=== PATIENT | female | born 1940 | race African-American/Black ===

== ENCOUNTER 2017-05-30 09:00 | Outpatient (CLI) | payer MEDICARE, MEDICAID | END 2017-05-30 09:01 | disposition home or self-care (01) | LOC: BICMAMMO 09:00 | PROVIDERS: ATTEND Internal Medicine | DX: Z12.31 Encounter for screening mammogram for malignant neoplasm of breast (principal); Z85.3 Personal history of malignant neoplasm of breast | CPT/HCPCS: 77063; 77067 ==

== ENCOUNTER 2017-08-16 08:32 | Outpatient (CLI) | payer MEDICARE, MEDICAID | END 2017-08-16 08:33 | disposition home or self-care (01) | LOC: BICULT 08:32 | PROVIDERS: ATTEND Family Medicine | DX: R63.4 Abnormal weight loss (principal) | CPT/HCPCS: 76705 ==

== ENCOUNTER 2018-05-31 10:57 | Outpatient (CLI) | payer MEDICARE, MEDICAID | END 2018-05-31 10:58 | disposition home or self-care (01) | LOC: BICMAMMO 10:57 | PROVIDERS: ATTEND Family Medicine | DX: Z12.31 Encounter for screening mammogram for malignant neoplasm of breast (principal); R92.1 Mammographic calcification found on diagnostic imaging of breast; Z85.3 Personal history of malignant neoplasm of breast | CPT/HCPCS: 77063; 77067 ==

== ENCOUNTER 2018-07-03 10:33 | Day surgery (SDC) | payer MEDICARE, MEDICAID ==
[2018-07-02 16:33] VITALS: BMI 18.6
--- NOTE | 2018-07-02 20:53 | HP ---
HISTORY OF PRESENT ILLNESS: The patient is a 78-year-old female referred to me by Dr. Meza for evaluation of dyspepsia, anorexia, and weight loss. The patient is fragile looking elderly black female, who has had poor appetite and weight loss. She also complains of some indigestion, dyspepsia. The patient comes in for abdominal bloating and early satiety. This has been going on for several months.She had no dysphagia, odynophagia. Her weight was 120 pounds in the past, but now her weight is down to 104 pounds. The patient has no hematochezia or melena. She has a more of chronic dyspepsia, early satiety, and weight loss. The patient comes in for EGD and colonoscopy because of the above symptoms. ALLERGIES: NONE. SOCIAL HISTORY: The patient does not smoke or drink alcohol. MEDICAL HISTORY: 1. Peripheral neuropathy. 2. Breast cancer, status post mastectomy. 3. Colon resection. 4. Osteoarthritis. 5. Osteoporosis. 6. Anemia. 7. Hypertension. 8. Left hip replacement. 9. Right hip replacement. 10. Vaginal wall suspension. PHYSICAL EXAMINATION: GENERAL: She is a very fragile looking elderly black female, appears comfortable, in no distress. VITAL SIGNS: Pulse is 70, blood pressure 110/70. HEENT: Conjunctivae clear. CARDIOVASCULAR SYSTEM/LUNGS: Within normal limits. ABDOMEN: Soft. No organomegaly. No tenderness. No masses. EXTREMITIES: Reveal no edema. ADMITTING DIAGNOSES: Chronic dyspepsia, early satiety, and weight loss. PLAN: EGD and colonoscopy. Job ID: [id number] MTDD
[~2018-07-03 10:33] MED LIST: Lidocaine 1% PF 5 ML VIAL ONE; PROPOFOL 200 MG/20 ML VIAL ONE
--- NOTE | 2018-07-03 19:13 | OP ---
DATE OF PROCEDURE: 07/03/2018 OPERATIVE PROCEDURE: Colonoscopy. PREOPERATIVE DIAGNOSES: A 78-year-old female with anorexia, weight loss, anemia, undergoing colonoscopy. POSTOPERATIVE DIAGNOSES: 1. Hemorrhoids. 2. Scattered diverticular disease in the sigmoid colon and also over the right colon area. 3. Fecal residue intermittently in the colon. Overall, I do not see any pathology to explain the weight loss. DESCRIPTION OF PROCEDURE: The patient was placed on the left lateral position and was given sedation by Anesthesia Department. A rectal exam was done before the scope was advanced into the rectum. No lesions felt on rectal exam. A Pentax video colonoscope was introduced into the rectum and advanced all the way to the cecum. The patient had copious amounts of thick fecal residue throughout the colon. Water was irrigated and washed out. I was able to get to the cecum without any difficulty. However, . The ileocecal area, cecum, no pathology seen. The patient does have . The transverse colon, splenic flexure, descending colon, no pathology seen. The sigmoid colon exam showed scattered diverticula. The rectum showed hemorrhoids. Job ID: [id number]
--- NOTE | 2018-07-04 02:18 | OP ---
DATE OF PROCEDURE: 07/03/2018 PROCEDURE PERFORMED: Esophagogastroduodenoscopy. PREOPERATIVE DIAGNOSES: Anorexia, early satiety, weight loss, and abdominal fullness. POSTOPERATIVE DIAGNOSES: 1. Small hiatus hernia. 2. Diverticulum in the 2nd part of the duodenum. There is no pathology seen indicating the patient's weight loss, dyspepsia,and anorexia. DESCRIPTION OF PROCEDURE: The patient was placed on her left lateral position and was given sedation by Anesthesia Department. A Pentax video gastroscope under direct vision passed down the oropharynx, past the GE junction into the stomach and subsequently into the descending duodenum. The esophageal mucosa appeared normal. There were no intense lesions. At the GE junction, no pathology seen. The patient has small hiatus hernia. Retroflexion of scope in stomach failed to show any pathology in fundus or cardia. In the gastric body and gastric antrum, no pathology seen. There was mild gastritis involving the gastric antrum pyloric opening. In the duodenal bulb, descending duodenum, no pathology seen. The patient had a diverticulum in the 2nd part of the duodenum. The stomach decompressed and scope removed. DISCHARGE PLANNING: This is a 78-year-old female, came for an EGD and a colonoscopy. She had been having a progressive weight loss, anorexia, early satiety and . The EGD showed a small hiatus hernia, diverticulosis in the 2nd part of the duodenum. The colonoscopy showed hemorrhoids and diverticular disease. DISCHARGE RECOMMENDATIONS: The patient advised to call me if she develops abdominal pain, hematochezia. We will plan for a CAT scan of the abdomen in the near future. Job ID: [id number]
[2018-07-04] MEDS ORDERED: Ciprofloxacin 0.2% Otic 1 DROP CON ONE (09:32)
== END 2018-07-03 14:05 | disposition home or self-care (01) ==
LOC: SDC 10:33
PROVIDERS: ATTEND Internal Medicine Gastroenterology
PROC: 0DJD8ZZ Inspection of Lower Intestinal Tract, Via Natural or Artificial Opening Endoscopic (ICD-10-PCS; principal; 2018-07-03)
PROC: 0DJ08ZZ Inspection of Upper Intestinal Tract, Via Natural or Artificial Opening Endoscopic (ICD-10-PCS; 2018-07-03)
DX: R63.4 Abnormal weight loss (principal); K64.9 Unspecified hemorrhoids; K57.50 Diverticulosis of both small and large intestine without perforation or abscess without bleeding; D64.9 Anemia, unspecified; K40.90 Unilateral inguinal hernia, without obstruction or gangrene, not specified as recurrent; G62.9 Polyneuropathy, unspecified; M19.90 Unspecified osteoarthritis, unspecified site; I10 Essential (primary) hypertension; M81.0 Age-related osteoporosis without current pathological fracture; R10.13 Epigastric pain; R68.81 Early satiety; Z79.899 Other long term (current) drug therapy
CPT/HCPCS: J2001; J2704

== ENCOUNTER 2018-10-16 16:41 | Emergency (ER) | payer MEDICARE, MEDICAID ==
--- NOTE | 2018-10-16 17:13 | RAD ---
EXAM: Chest 2 views: HISTORY: Weakness and decreased appetite COMPARISON: 12/28/2002 FINDINGS: There is a normal-sized cardiomediastinal silhouette. Atherosclerotic calcifications are seen in the aorta. There is no evidence of consolidation, mass, or pleural effusion. Degenerative changes are seen in the spine. IMPRESSION: No evidence of acute cardiopulmonary disease
--- NOTE | 2018-10-16 18:09 | CT ---
EXAM: CT brain without contrast HISTORY: Generalized weakness. Intermittent frontal headache for one week COMPARISON: 04/29/2016 TECHNIQUE: Multiple contiguous axial images were obtained and a CT of the brain without contrast. FINDINGS: There are scattered hypodensities in the subcortical and periventricular white matter consi stent with small vessel ischemic disease. There is no evidence of hydrocephalus, intracranial hemorrhage, or extra-axial fluid collection. The calvarium and overlying soft tissues are unremarkable. The visualized paranasal sinuses and masto id air cells are well aerated. IMPRESSION: No evidence of acute intracranial abnormality
[2018-10-16 18:41] LABS: #Eosinphils 0.2 thou/uL (0.0-0.7); #Lymphocytes 2.4 thou/uL (1.20-3.40); #Monocytes 0.6 thou/uL (0.11-0.59); #Neutrophils 3.4 thou/uL (1.40-6.50); %Basophils 0.6 % (0.0-1.0); %Eosinophils 2.3 % (0.0-10.0); %Lymphocytes 36.6 % (21.0-51.0); %Monocytes 9.3 % (0.0-10.0); %Neutrophils 51.2 % (42.0-75.0); Hemoglobin 11.7 g/dL (12.0-16.0); Mean Corpuscular HGB CONC 32.7 g/dL (32.0-36.0); Mean Corpuscular Volume 91.7 fL (78.0-98.0); Platelet Count 277 thou/uL (130-400); RBC Distribution Width 11.8 % (11.5-14.5); Red Blood Cell (RBC) Count 3.91 mill/uL (4.20-5.40); White Blood Cell (WBC) Count 6.6 thou/uL (4.8-10.8)
[2018-10-16 19:03] LABS: ALT (SGPT) 14 U/L (8-55); AST (SGOT) 16 U/L (5-34); Albumin 4.1 g/dL (3.4-4.8); Alkaline Phosphatase 81 U/L (40-150); Anion Gap 13 mmol/L (10-20); BUN (Urea Nitrogen) 22 mg/dL (9.8-20.1); Bilirubin, Total 0.3 mg/dL (0.2-1.2); Calc. Creatinine Clearance 0 mL/min (70-130); Calcium 9.7 mg/dL (7.8-10.44); Carbon Dioxide 25 mmol/L (23-31); Chloride 105 mmol/L (98-107); Estimated GFR-MDRD 80; Globulin 3.8 g/dL (2.4-3.5); Glucose 85 mg/dL (83-110); Potassium 4.2 mmol/L (3.5-5.1); Protein, Total 7.9 g/dL (6.0-8.3); Sodium 139 mmol/L (136-145)
[2018-10-16 20:18] LABS: Bilirubin Negative (Negative); Blood, Urine 2+ (Negative); Clarity Extra Turbid (Clear); Glucose, Urine (Dipstick) Normal (Negative); Leukocyte 250 Leu/uL (Negative); Nitrite Negative (Negative); Protein, Urine (Dipstick) 10 mg/dL (Neg-Trace); RBC/HPF 21-50 HPF (0-3); Squamous Epithelial 0-3 HPF (0-3); Urobilinogen Normal mg/dL (Less than 2)
[2018-10-16 20:19] LABS: Bacteria/HPF None Seen HPF (None Seen); WBC/HPF None Seen HPF (0-3)
[2018-10-16] MEDS ORDERED: Acetaminophen 500 MG TAB ONE (20:19)
== END 2018-10-16 20:44 | disposition home or self-care (01) ==
LOC: ERS 16:41
DX: R53.1 Weakness (principal); R51 Headache; N39.0 Urinary tract infection, site not specified; F17.220 Nicotine dependence, chewing tobacco, uncomplicated
CPT/HCPCS: 36415; 70450; 71046; 80053; 81003; 81015; 85025; 93005; A4353

== ENCOUNTER 2018-12-27 11:00 | Emergency (ER) | payer MEDICARE, MEDICAID ==
[2018-12-27 12:03] LABS: #Eosinphils 0.1 thou/uL (0.0-0.7); #Lymphocytes 2.5 thou/uL (1.20-3.40); #Monocytes 1.1 thou/uL (0.11-0.59); #Neutrophils 7.4 thou/uL (1.40-6.50); %Basophils 0.4 % (0.0-1.0); %Eosinophils 0.9 % (0.0-10.0); %Lymphocytes 22.6 % (21.0-51.0); %Monocytes 9.7 % (0.0-10.0); %Neutrophils 66.4 % (42.0-75.0); Hemoglobin 10.6 g/dL (12.0-16.0); Mean Corpuscular HGB CONC 32.7 g/dL (32.0-36.0); Mean Corpuscular Hemoglobin 29.4 pg (27.0-31.0); Platelet Count 331 thou/uL (130-400); RBC Distribution Width 11.9 % (11.5-14.5); Red Blood Cell (RBC) Count 3.61 mill/uL (4.20-5.40); White Blood Cell (WBC) Count 11.1 thou/uL (4.8-10.8)
[2018-12-27 12:26] LABS: ALT (SGPT) 15 U/L (8-55); AST (SGOT) 22 U/L (5-34); Albumin 3.8 g/dL (3.4-4.8); Alkaline Phosphatase 70 U/L (40-150); Anion Gap 13 mmol/L (10-20); BUN (Urea Nitrogen) 48 mg/dL (9.8-20.1); Bilirubin, Total 0.5 mg/dL (0.2-1.2); Calc. Creatinine Clearance 0 mL/min (70-130); Calcium 9.9 mg/dL (7.8-10.44); Carbon Dioxide 30 mmol/L (23-31); Chloride 102 mmol/L (98-107); Estimated GFR-MDRD 58; Globulin 3.2 g/dL (2.4-3.5); Glucose 116 mg/dL (83-110); Lipase 7 U/L (8-78); Potassium 3.6 mmol/L (3.5-5.1); Sodium 141 mmol/L (136-145)
--- NOTE | 2018-12-27 13:33 | RAD ---
2 VIEWS ABDOMEN AND 1 VIEW CHEST: Date: 12/27/18 HISTORY: Abdominal pain. Chest pain. Constipation. Loss of appetite. COMPARISON: Chest radiograph dated 10/16/18. FINDINGS: CHEST 1 VIEW: Atherosclerosis of aortic knob. Normal cardiac silhouette. Pulmonary vessels and hilum are normal. Ri ght costophrenic angle is clear. Minimal blunting left costophrenic angles. Lung volumes are diminish ed, likely due to poor inspiratory effort. Probable bibasilar atelectasis. A left lower lobe infiltra te cannot be entirely excluded. There is no pneumothorax or osseous abnormalities. ABDOMEN 2 VIEWS: Multiple mildly prominent air-filled loops of small bowel with differential air fluid levels. There d oes appear to be some air and fecal material in the colon. Correlate for a developing ileus versus an early/partial obstructive process. No pneumoperitoneum on the upright projection. No suspicious dens ities in the abdomen or pelvis. There are degenerative changes in the lower lumbar spine. There appears to be subluxation of the right hip prosthesis from its normal expected location. There appears to be chronic change involving the right acetabulum. Left hip prosthesis is unremarkable. IMPRESSION: 1. Developing ileus versus early/partial small bowel obstruction. Continued surveillance is recommen ded. 2. Possible left lower lobe infiltrate. POS: TPC
--- NOTE | 2018-12-29 13:38 | EKG ---
Test Reason : Blood Pressure : / mmHG Vent. Rate : 090 BPM Atrial Rate : 090 BPM P-R Int : 146 ms QRS Dur : 118 ms QT Int : 390 ms P-R-T Axes : 039 000 022 degrees QTc Int : 477 ms Normal sinus rhythm Incomplete right bundle branch block Septal infarct , age undetermined Abnormal ECG Confirmed by BREN TAYLOR D.O. ([id number]), editor index SHANNAN SADLER ([id number]) on 12/29/2018 1:38:37 PM Referred By: Confirmed By:BREN TAYLOR D.O.
== END 2018-12-27 13:31 | disposition home or self-care (01) ==
LOC: ERS 11:00
DX: K59.00 Constipation, unspecified (principal); F17.220 Nicotine dependence, chewing tobacco, uncomplicated; Z79.899 Other long term (current) drug therapy
CPT/HCPCS: 36415; 74022; 80053; 83690; 84484; 85025; 93005; 94760

== ENCOUNTER 2019-01-16 10:21 | Outpatient (CLI) | payer MEDICARE, MEDICAID ==
[2019-01-16 14:40] LABS: #Eosinphils 0.1 thou/uL (0.0-0.7); #Lymphocytes 1.8 thou/uL (1.20-3.40); #Monocytes 0.6 thou/uL (0.11-0.59); #Neutrophils 3.5 thou/uL (1.40-6.50); %Eosinophils 1.4 % (0.0-10.0); %Lymphocytes 30.1 % (21.0-51.0); %Monocytes 9.3 % (0.0-10.0); %Neutrophils 59.2 % (42.0-75.0); Hemoglobin 10.6 g/dL (12.0-16.0); Mean Corpuscular HGB CONC 32.8 g/dL (32.0-36.0); Mean Corpuscular Hemoglobin 29.6 pg (27.0-31.0); Mean Corpuscular Volume 90.2 fL (78.0-98.0); Mean Platelet Volume 7.4 fL (7.4-10.4); Platelet Count 393 thou/uL (130-400); RBC Distribution Width 12.3 % (11.5-14.5); Red Blood Cell (RBC) Count 3.59 mill/uL (4.20-5.40); White Blood Cell (WBC) Count 5.9 thou/uL (4.8-10.8)
[2019-01-16 14:46] LABS: RBC/HPF 21-50 HPF (0-3); WBC/HPF Greater than 50 HPF (0-3)
[2019-01-16 14:47] LABS: INR-International Normal Ratio 1.1; Prothrombin Time 13.9 SEC (12.0-14.7)
[2019-01-16 14:57] LABS: Bacteria/HPF 2+ HPF (None Seen); Calcium Oxalate Crystals 1+ HPF (None Seen)
[2019-01-16 15:01] LABS: Anion Gap 11 mmol/L (10-20); BUN (Urea Nitrogen) 14 mg/dL (9.8-20.1); Calc. Creatinine Clearance 0 mL/min (70-130); Calcium 9.2 mg/dL (7.8-10.44); Carbon Dioxide 26 mmol/L (23-31); Chloride 105 mmol/L (98-107); Estimated GFR-MDRD 85; Glucose 96 mg/dL (83-110); Sodium 138 mmol/L (136-145)
== END 2019-01-16 10:22 | disposition home or self-care (01) ==
LOC: LABBT 10:21
PROVIDERS: ATTEND Orthopaedic Surgery
DX: Z01.812 Encounter for preprocedural laboratory examination (principal); T84.010A Broken internal right hip prosthesis, initial encounter
CPT/HCPCS: 80048; 81015; 85025; 85610; 87081

== ENCOUNTER 2019-01-16 13:15 | Inpatient (IN) | payer MEDICARE, MEDICAID ==
[2019-01-16 13:24] VITALS: BMI 20.1
[2019-01-24] MEDS ORDERED: Sodium Chloride 0.9% 100 ML ONE (07:31)
[2019-01-24] MEDS ORDERED: Tranexamic Acid 1,000 MG/10 ML VIAL ONE ×2 (07:31→12:53)
[2019-01-24] MEDS ORDERED: Fentanyl 100 MCG/2 ML VIAL ONE ×3 (08:03→12:28)
[2019-01-24] MEDS ORDERED: Midazolam HCl 2 mg/2 ml Vial ONE (08:04)
[2019-01-24] MEDS ORDERED: diphenhydrAMINE 50 MG/ML VIAL IM PRN (09:00)
[2019-01-24] MEDS ORDERED: Bupivacaine 0.25% 10 ML VIAL EPIDURAL PRN (09:00)
[2019-01-24] MEDS ORDERED: fentaNYL Citrate/PF 500 MCG, Bupivacaine 10 ML in Sodium Chloride 0.9% 80 ML EPIDURAL SCH (09:00)
[2019-01-24] MEDS ORDERED: diphenhydrAMINE 50 MG/ML VIAL IVP PRN (09:00)
[2019-01-24] MEDS ORDERED: HYDROcodone/Acetaminophen 5/325 mg Tablet PO PRN ×2 (09:00)
[2019-01-24] MEDS ORDERED: Zolpidem Tartrate 5 MG TAB PO PRN ×2 (09:00→09:13)
[2019-01-24] MEDS ORDERED: Ondansetron PF 4 MG/2 ML Vial IVP PRN ×2 (09:00→09:13)
[2019-01-24] MEDS ORDERED: Promethazine HCl 25 MG SUPP PR PRN (09:00)
[2019-01-24] MEDS ORDERED: Naloxone HCl 0.4 mg/ml Vial IVP PRN (09:00)
[2019-01-24] MEDS ORDERED: Naloxone HCl 0.4 mg/ml Vial IV PRN (09:00)
[2019-01-24] MEDS ORDERED: diphenhydrAMINE 25 MG CAP PO PRN ×2 (09:00→09:13)
[2019-01-24] MEDS ORDERED: Hydrocerin (Eucerin) Cream 120 gm Jar TOP PRN (09:00)
[2019-01-24] MEDS ORDERED: Promethazine HCl 25 MG/ML VIAL IM PRN ×3 (09:00→10:31)
[2019-01-24] MEDS ORDERED: Acetaminophen 325 MG TAB PO PRN (09:13)
[2019-01-24] MEDS ORDERED: Fentanyl 100 MCG/2 ML VIAL SLOW IVP PRN ×2 (09:13)
[2019-01-24] MEDS ORDERED: HYDROcodone/Acetaminophen 10/325 mg Tablet PO PRN ×2 (09:13)
[2019-01-24] MEDS ORDERED: Ropivacaine 0.2% HCl/PF 20 ML ONE (09:53)
[2019-01-24] MEDS ORDERED: Ondansetron HCl/PF 4 MG/2 ML Vial IVP PRN ×2 (10:31→13:21)
[2019-01-24] MEDS ORDERED: Promethazine HCl 25 MG/ML VIAL SLOW IVP PRN (10:31)
[2019-01-24] MEDS ORDERED: Ondansetron PF 4 MG/2 ML Vial ONE (12:12)
[2019-01-24] MEDS ORDERED: Lidocaine 1% PF 5 ML VIAL ONE (12:12)
[2019-01-24] MEDS ORDERED: Rocuronium Bromide 10 MG/ML (10ML VIAL) ONE (12:12)
[2019-01-24] MEDS ORDERED: Glycopyrrolate 0.2 MG/ML 5 ML SYRINGE ONE (12:12)
[2019-01-24] MEDS ORDERED: PHENYLEPHRINE-NS 100 MCG/ML 10 ML SYRINGE ONE (12:12)
[2019-01-24] MEDS ORDERED: PROPOFOL 200 MG/20 ML VIAL ONE (12:12)
[2019-01-24] MEDS ORDERED: ePHEDrine 50 MG/ML VIAL ONE (12:12)
[2019-01-24] MEDS ORDERED: Promethazine HCl 25 MG/ML VIAL IM/IV PRN (13:21)
[2019-01-24] MEDS ORDERED: Non-Formulary Medication 1 EACH PO PRN (13:21)
[2019-01-24] MEDS: Ketorolac Tromethamine 30 MG/ML VIAL IVP SCH ×3 (13:50→23:29)
--- NOTE | 2019-01-24 13:58 | OP ---
DATE OF PROCEDURE: 01/24/2019 PREOPERATIVE DIAGNOSIS: Failed right total hip arthroplasty. POSTOPERATIVE DIAGNOSIS: Failed right total hip arthroplasty. OPERATIVE PROCEDURE: Revision right total hip arthroplasty one component (acetabulum revision). ACCOUNT SUPPORT ANALYST: Dru Penn PA-C ANESTHESIA: General via endotracheal tube augmented with epidural. COMPONENTS USED: [facility] revision acetabular Trident hemispherical 58 mm cup with a restorationism 6.5 mm screw x2 of 20 mm each, MDM cementless 46 mm liner, SWING DRIVER femoral head, and a restorationism of 28 x 52 mm ADM/MDM restorationism modular head. ESTIMATED BLOOD LOSS: 250. 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 SPECIMENS: Intraoperative tissue sent for frozen, negative for organisms. INPUT: 1500 mL crystalloid. OUTPUT: 200 mL of clear yellow urine. DRAINS: None. COMPLICATIONS: None. COUNTS: Correct. INDICATION FOR SURGERY: Una is a 78-year-old female, who has had progressive right hip, groin, and thigh pain and problems with standing and walking and radiographs demonstrated changes in the position of her acetabular cup. The patient has elected to proceed with revision arthroplasty as definitive treatment of all the problems. DESCRIPTION OF PROCEDURE: After informed consent was obtained in the preoperative holding area, the patient was taken to the operative suite, where she received preoperative antibiotics and general anesthesia was induced and an endotracheal tube was placed and secured. Once adequate anesthesia was obtained, the patient was placed in the left lateral decubitus position and was secured to the operating table. The right lower extremity was then prepped and draped in usual sterile fashion. Prior to incision, a time-out was called. All members of surgical team agreed upon site, surgeon, and patient. We chose an anterolateral approach using the patient's old scar. After initial incision was made, Bovie electrocautery was used to undermine deeper tissues. IT band was encountered. This was then incised sharply. The abductors were identified and reflected. 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 The proximal femur after skeletonization was identified and significant proximal bone loss was noted, but the patient had excellent distal fixation of her fully porous-coated SWING DRIVER stem. Copious synovectomy was performed, almost the metallosis was removed and we then used SWING DRIVER punch to remove the femoral head and then, the acetabular shell was loose. We were able to remove the liner and both screws without any use of the osteotomes. We were able to essentially take the acetabular shell out with fingers. We then used curettage to remove the rind in the metallosis, which had been formed inside the acetabular defect. After copious cleaning and curettage, we reamed up to 56 mm cup and then placed a cadaveric bone into the defect as bone graft. Two screws were placed with good purchase superiorly into the ilium. Cup had excellent fixation was stable. We then placed our polyethylene liner and turned attention to the femoral head. We then placed our bipolar MDM head, and reduction maneuver was performed. The patient was stable to flexion, extension, internal and external rotation, and shuck. She did not have any abductor bounce. The entire wound was copiously irrigated with normal saline and primary closure was accomplished with a #5 Ethibond and #2 Vicryl for the abductor. The IT band was closed with a running Quill #2 stitch. The subcutaneous layer was closed with a running 0 Quill stitch. Subcuticular layer was closed with a 3-0 Monocryl Quill stitch and skin cement was placed over the incision. Sterile dressing was applied. Procedure was terminated without any complication. At the time of this dictation, the patient is still awaiting extubation and disposition post extubation will be to recovery room. Job ID: [id number]
--- NOTE | 2019-01-24 14:03 | RAD ---
RIGHT HIP 2 VIEWS: HISTORY: Postop total hip arthroplasty. FINDINGS/IMPRESSION: There are recent postop changes of total knee arthroplasty in good position and alignment. Soft tiss ue air is present. There are vascular calcifications. POS: OFF
[2019-01-24] MEDS: Sodium Chloride 0.9% 1,000 ML IV SCH ×2 (14:39→19:05)
[2019-01-24] MEDS: Gabapentin 300 MG CAP PO SCH ×2 (14:39→19:50)
[2019-01-24] MEDS: CEFAZOLIN 2 GM in Premix Bag 1 BAG IVPB SCH ×2 (16:51→23:29)
[2019-01-24] MEDS ORDERED: FLU VACC TS2019-20(65YR UP)/PF 180 MCG/0.5 ML SYRINGE IM ONE (19:00)
[2019-01-24] MEDS: Aspirin 81 mg Enteric Coated Tablet PO SCH (19:49)
[2019-01-24] MEDS ORDERED: Ferrous Gluconate 324 MG TAB PO SCH (21:00)
[2019-01-25 04:46] LABS: Hemoglobin 8.7 g/dL (12.0-16.0); Mean Corpuscular Hemoglobin 30.4 pg (27.0-31.0); Mean Platelet Volume 7.2 fL (7.4-10.4); Platelet Count 285 thou/uL (130-400); RBC Distribution Width 11.9 % (11.5-14.5); Red Blood Cell (RBC) Count 2.86 mill/uL (4.20-5.40); White Blood Cell (WBC) Count 7.8 thou/uL (4.8-10.8)
[2019-01-25] MEDS: Ketorolac Tromethamine 30 MG/ML VIAL IVP SCH ×3 (06:51→17:55)
[2019-01-25] MEDS ORDERED: Aspirin 81 mg Enteric Coated Tablet PO SCH (09:00)
[2019-01-25] MEDS ORDERED: Non-Formulary Item 1 EACH (Multivit-Min/Iron/Folic/Lutein [Centrum Silver Women] 1 TAB) PO SCH (09:00)
[2019-01-25] MEDS: Sodium Chloride 0.9% 1,000 ML IV SCH ×2 (09:22→16:36)
[2019-01-25] MEDS: Ferrous Gluconate 324 MG TAB PO SCH ×2 (09:22→17:54)
[2019-01-25] MEDS: Senokot S 8.6-50 MG TAB PO SCH ×2 (09:22→20:15)
[2019-01-25] MEDS: Gabapentin 300 MG CAP PO SCH ×3 (09:22→20:15)
[2019-01-25] MEDS: Multivitamin W/ Minerals 1 TAB PO SCH (09:22)
[2019-01-25] MEDS: Aspirin 81 mg Enteric Coated Tablet PO SCH ×2 (09:23→20:15)
[2019-01-25] MEDS: Artificial Tear Sol 15 ML BOT EA EYE SCH (10:35)
[2019-01-25] MEDS ORDERED: Sodium Chloride 0.9% 500 ML IVPB SCH (11:15)
--- NOTE | 2019-01-25 13:27 | PRG ---
DATE OF SERVICE: 01/25/2019 SUBJECTIVE: Una is a 78-year-old female, postoperative day 1 from right revision hip arthroplasty of the acetabulum. She is sitting up, doing very well this morning. She has no complaints of pain and is quite happy with her postoperative results. Her knee pain which brought her to surgery has improved. OBJECTIVE: VITAL SIGNS: Temperature 98.6, pulse 80, respiratory rate 16 and nonlabored, blood pressure 88/48. GENERAL: She is alert and oriented to person, place, time, and situation, grossly nonfocal, responsive, and appropriate with examiner. EXTREMITIES: Incision is clean. Leg lengths are equal. There is no shortening or malrotation. No erythema. No strikethrough is noted. LABORATORY DATA: Hemoglobin and hematocrit 8.7 and 26.4. IMPRESSION: 1. This is a 78-year-old female, postoperative day 1 from a partial right hip revision arthroplasty. 2. Anemia. PLAN: Continue current care. Recheck tomorrow. Job ID: [id number]
[2019-01-25] MEDS: HYDROcodone/Acetaminophen 10/325 mg Tablet PO PRN ×2 (16:02→20:16)
[2019-01-25] MEDS ORDERED: Prevnar 13-Val Conj/PF 0.5 ML SYRINGE IM ONE (16:15)
--- NOTE | 2019-01-25 16:39 | CON ---
DATE OF CONSULTATION: 01/25/2019 PRIMARY CARE PROVIDER: Dr. Caitlyn Meza. CHIEF COMPLAINT: Management of medical comorbidities. HISTORY OF PRESENT ILLNESS: Ms. Wright is a pleasant 78-year-old lady, who was seen at [facility] on January 25, 2019. On January 24, she underwent revision right total hip arthroplasty. Hospitalist Service was consulted for management of medical comorbidities. Ms. Wright denies any chest pain. She denies any lightheadedness. She denies any nausea or vomiting. She denies any abdominal pain, fevers, or chills. She reports that pain at the surgical site is managed with medications and is under control. REVIEW OF SYSTEMS: All systems were reviewed and found to be negative except for the pertinent positives mentioned above. PAST MEDICAL HISTORY: Left-sided breast cancer status post chemotherapy and mastectomy, benign pericardial mass, hematuria. SURGICAL HISTORY: Colon resection, left mastectomy, hysterectomy, total right hip arthroplasty in 98 and total left hip arthroplasty in , and bone grafting in 1999. FAMILY HISTORY: Hypertension and diabetes in multiple family members. SOCIAL HISTORY: The patient denies tobacco use, alcohol use, or recreational drug use. ALLERGIES: NO KNOWN DRUG ALLERGIES. CURRENT MEDICATIONS: 1. Alendronate 70 mg every week. 2. Aspirin 81 mg daily. 3. Refresh Tears daily. 4. Ferrous gluconate 324 mg 2 times a day. 5. Neurontin 300 mg 3 times a day. 6. Centrum Silver 1 tablet daily. 7. Tramadol p.r.n. PHYSICAL EXAMINATION: GENERAL: On examination, Ms. Wright is awake and alert, not in acute distress. VITAL SIGNS: Blood pressure is 106/40, pulse 82, respiratory rate 14, and oxygen saturation 99% on room air. She is afebrile. EYES: No scleral icterus, no conjunctival pallor. ENT: Moist mucosal membranes. No oropharyngeal erythema or exudates. NECK: Supple, nontender, trachea is midline. RESPIRATORY: Accessory muscles of breathing are not active. Chest wall movements are symmetric bilaterally. Lungs are clear to auscultation without wheeze, rhonchi, or crepitations. CARDIOVASCULAR: S1 and S2 are heard, regular. Peripheral pulses palpable. No carotid bruit. No pericardial rub. ABDOMEN: Soft, nontender, bowel sounds are heard. NEUROLOGIC: Cranial nerves 2 through 12 are intact. MUSCULOSKELETAL: Arthritic changes, status post right hip surgery. SKIN: No rashes or subcutaneous nodules. LYMPHATIC: No cervical lymphadenopathy. PSYCHIATRIC: Normal mood, normal affect, patient is oriented to person, place, and time. LABORATORY DATA: Ms. Wright' labs and investigations were reviewed. She has normal white count, normocytic anemia with hemoglobin 8.7, and normal platelet count. ASSESSMENT AND PLAN: Ms. Wright is a pleasant 78-year-old lady, who was seen at [facility] on January 25, 2019. Her problem list includes: 1. Osteoporosis: Continue alendronate. 2. Iron-deficiency anemia: Continue ferrous gluconate. 3. Peripheral neuropathy: Continue gabapentin. 4. The patient had episode of hypotension, which responded well to fluid resuscitation. She was asymptomatic at that time. Continue to monitor vital signs and titrate antihypertensives as needed. 5. DVT prophylaxis and pain management per Orthopedic Surgery Service. Many thanks for allowing me to participate in your patient's care. Please feel free to contact me with any questions or concerns. Level of risk: Moderate. Level of complexity: Moderate. Job ID: [id number]
[2019-01-25] MEDS: traMADol HCl 50 MG TAB PO PRN (18:07)
[2019-01-26] MEDS: Ketorolac Tromethamine 30 MG/ML VIAL IVP SCH ×2 (00:29→05:50)
[2019-01-26 04:28] LABS: Hemoglobin 8.4 g/dL (12.0-16.0); Mean Corpuscular HGB CONC 32.5 g/dL (32.0-36.0); Mean Corpuscular Volume 92.3 fL (78.0-98.0); Mean Platelet Volume 7.1 fL (7.4-10.4); Platelet Count 290 thou/uL (130-400); RBC Distribution Width 11.9 % (11.5-14.5); Red Blood Cell (RBC) Count 2.79 mill/uL (4.20-5.40); White Blood Cell (WBC) Count 7.9 thou/uL (4.8-10.8)
[2019-01-26] MEDS: Sodium Chloride 0.9% 1,000 ML IV SCH ×2 (07:32→16:46)
[2019-01-26] MEDS: Ferrous Gluconate 324 MG TAB PO SCH ×2 (08:25→16:46)
[2019-01-26] MEDS: traMADol HCl 50 MG TAB PO PRN ×2 (08:45→19:57)
[2019-01-26] MEDS ORDERED: Famotidine 20 MG TAB PO SCH (09:30)
[2019-01-26] MEDS: Aspirin 81 mg Enteric Coated Tablet PO SCH ×2 (09:32→19:58)
[2019-01-26] MEDS: Multivitamin W/ Minerals 1 TAB PO SCH (09:32)
[2019-01-26] MEDS: Senokot S 8.6-50 MG TAB PO SCH ×2 (09:32→19:58)
[2019-01-26] MEDS: Gabapentin 300 MG CAP PO SCH ×3 (09:32→19:58)
[2019-01-26] MEDS: Artificial Tear Sol 15 ML BOT EA EYE SCH (09:57)
--- NOTE | 2019-01-26 13:27 | PRG ---
DATE OF SERVICE: 01/26/2019 SUBJECTIVE: Una is postop day 2 from a revision right total hip arthroplasty. She is doing very well. Her pain is controlled. She is ambulating 200 feet. She has no complaints. OBJECTIVE: VITAL SIGNS: Temperature 98.8, pulse 69, respiratory rate 16 and nonlabored, blood pressure 101/52. GENERAL: She is alert and oriented to person, place, time, situation. Responsive, appropriate. Grossly nonfocal. LABORATORY DATA: Hemoglobin and hematocrit 8.4 and 25.8. IMPRESSION: 1. A 78-year-old female, postop day 2, right total hip revision arthroplasty. 2. Anemia, asymptomatic. PLAN: The patient desired to go home rather than have a skilled rehab stay. Therefore, we will plan for discharge on Monday to home. Job ID: [id number]
--- NOTE | 2019-01-26 13:55 | PDOC.HOSPP ---
- Subjective Encounter Date: 01/26/19 Encounter Time: 11:20 Subjective: Pt seen for followup re; osteoporosis. No complaints today. - Objective Vital Signs & Weight: Vital Signs (12 hours) Temp Pulse Resp BP BP Pulse Ox 01/26/19 11:38 98.8 F 69 16 101/52 L 97 01/26/19 08:30 96 01/26/19 08:12 69 103/64 01/26/19 07:59 98.4 F 66 16 91/49 L 96 01/26/19 05:40 72 103/60 01/26/19 05:23 94 L 01/26/19 03:41 98.3 F 73 16 91/52 L 95 Weight Weight 110 lb I&O: 01/25/19 01/26/19 01/27/19 06:59 06:59 06:59 Intake Total 699 Output Total 175 400 600 Balance 704 400 -518 Result Diagrams: 01/26/19 04:06 Additional Labs: labs and MARs reviewed by nm Hospitalist ROS - Review of Systems Cardiovascular: denies: chest pain, palpitations, orthopnea, paroxysmal noc. dyspnea, edema, light headedness Gastrointestinal: denies: nausea, vomiting, abdominal pain, diarrhea, constipation, melena, hematochezia - Medication Medications: Active Medications Generic Name Dose Route Start Last Admin Trade Name Freq PRN Reason Stop Dose Admin Hydrocodone Bitart/Acetaminophen 1 tab 01/25/19 13:46 01/25/19 20:16 [place] 10/325 PO 1 tab Q4H PRN Administration Pain Artificial Tears 1 drop 01/25/19 09:00 01/26/19 09:57 Liquitears 15ml Bottle EA EYE 1 drp DAILY SERGEI Administration Aspirin 81 mg 01/24/19 21:00 01/26/19 09:32 Ecotrin PO 81 mg BID SERGEI Administration Ferrous Gluconate 324 mg 01/25/19 08:00 01/26/19 08:25 Fergon PO 324 mg BID-WM SERGEI Administration Gabapentin 300 mg 01/24/19 15:00 01/26/19 09:32 Neurontin PO 300 mg TID SERGEI Administration Sodium Chloride 1,000 mls @ 100 mls/hr 01/24/19 09:15 01/26/19 07:32 Normal Saline 0.9% IV Not Given .Q10H SERGEI Iron/Minerals/Multivitamins 1 tab 10/11/19 09:00 01/26/19 09:32 Theragran M PO 1 tab DAILY SERGEI Administration Senna/Docusate Sodium 2 tab 01/25/19 09:00 01/26/19 09:32 Senokot S PO 2 tab BID SERGEI Administration Tramadol HCl 50 mg 01/24/19 09:00 01/26/19 08:45 Ultram PO 50 mg Q6H PRN Administration Mild Pain 1-3 Tramadol HCl 100 mg 01/24/19 09:00 01/25/19 18:07 Ultram PO 100 mg Q6H PRN Administration Moderate Pain 4-6 - Exam General Appearance: NAD Eye: anicteric sclera ENT: moist mucosa Neck: supple Heart: RRR Respiratory: CTAB Gastrointestinal: soft, non-tender Extremities - other findings: s/p R hip surgery Skin: no rashes Psychiatric: normal affect, normal behavior Hosp A/P (1) Osteoporosis Code(s): M81.0 - AGE-RELATED OSTEOPOROSIS W/O CURRENT PATHOLOGICAL FRACTURE Status: Chronic (2) Anemia Code(s): D64.9 - ANEMIA, UNSPECIFIED Status: Chronic - Plan PT/OT, out of bed/ambulate Continue alendronate Continue anemia Pt denies any symptoms from low blood pressure, continue to monitor vital signs. s/p R hip surgery. Likely home on Monday.
[2019-01-26] MEDS: HYDROcodone/Acetaminophen 10/325 mg Tablet PO PRN ×2 (14:24→23:38)
[2019-01-26] MEDS: Famotidine 20 MG TAB PO SCH (19:58)
[2019-01-27] MEDS: Sodium Chloride 0.9% 1,000 ML IV SCH ×3 (02:08→23:55)
[2019-01-27] MEDS: Multivitamin W/ Minerals 1 TAB PO SCH (08:40)
[2019-01-27] MEDS: Ferrous Gluconate 324 MG TAB PO SCH ×2 (08:41→16:44)
[2019-01-27] MEDS: Famotidine 20 MG TAB PO SCH ×2 (08:41→21:20)
[2019-01-27] MEDS: Artificial Tear Sol 15 ML BOT EA EYE SCH (08:41)
[2019-01-27] MEDS: Senokot S 8.6-50 MG TAB PO SCH ×2 (08:41→21:20)
[2019-01-27] MEDS: Aspirin 81 mg Enteric Coated Tablet PO SCH ×2 (08:41→21:19)
[2019-01-27] MEDS: Gabapentin 300 MG CAP PO SCH ×3 (08:42→21:19)
[2019-01-27] MEDS ORDERED: FLU VACC TS2019-20(65YR UP)/PF 180 MCG/0.5 ML SYRINGE IM ONE (09:00)
--- NOTE | 2019-01-27 11:28 | PRG ---
DATE OF SERVICE: 01/27/2019 SUBJECTIVE: Una is a 78-year-old female, postop day 3 from a revision right total hip arthroplasty. She is doing very well. Pain has improved and her mobility also continues to improve. She ambulated 160 feet yesterday afternoon and is quite stable. OBJECTIVE: VITAL SIGNS: Temperature 95, pulse 78, respiratory rate 16 and nonlabored, O2 saturation is 98% on room air, blood pressure is 93/58. GENERAL: She is alert and oriented to person, place, time, situation, responsive, appropriate with examiner, grossly nonfocal. Incision is clean without any erythema. No strike through. EXTREMITIES: No malrotation or shortening of the lower extremities and she is neurovascularly intact in both lower extremities. LABORATORY DATA: Hemoglobin and hematocrit yesterday were 8.4 and 25.8. There is no laboratory for today, it apparently reached a guru yesterday morning. IMPRESSION: A 78-year-old female, postop day 3 from a revision of right total hip arthroplasty. PLAN: Continue current care. Consider discharge home or skilled facility tomorrow. Job ID: [id number]
[2019-01-27] MEDS: Calcium Carbonate 500 MG ChewTAB PO PRN (14:18)
--- NOTE | 2019-01-27 18:07 | PDOC.EVN ---
Event Note - Event Note Event Note: Pt seen in followup. Denies any complaints. Feels well. VSS. S1, S2, RRR. Lungs CTA. A/P: Pt doing well from medical standpoint. Plans for discharge noted. Will signoff. Please reconsult if needed.
[2019-01-27] MEDS: HYDROcodone/Acetaminophen 10/325 mg Tablet PO PRN (21:18)
[2019-01-28] MEDS: Ferrous Gluconate 324 MG TAB PO SCH ×2 (09:07→16:54)
[2019-01-28] MEDS: Artificial Tear Sol 15 ML BOT EA EYE SCH (09:07)
[2019-01-28] MEDS: Aspirin 81 mg Enteric Coated Tablet PO SCH ×2 (09:08→20:40)
[2019-01-28] MEDS: Senokot S 8.6-50 MG TAB PO SCH ×2 (09:08→20:41)
[2019-01-28] MEDS: Multivitamin W/ Minerals 1 TAB PO SCH (09:08)
[2019-01-28] MEDS: Famotidine 20 MG TAB PO SCH ×2 (09:08→20:41)
[2019-01-28] MEDS: Gabapentin 300 MG CAP PO SCH ×3 (09:08→20:40)
[2019-01-28] MEDS: Sodium Chloride 0.9% 1,000 ML IV SCH ×2 (09:09→16:15)
[2019-01-28] MEDS: traMADol HCl 50 MG TAB PO PRN ×3 (09:17→20:46)
[2019-01-29] MEDS: Sodium Chloride 0.9% 1,000 ML IV SCH ×2 (06:32→15:43)
[2019-01-29] MEDS: Gabapentin 300 MG CAP PO SCH ×3 (09:24→20:55)
[2019-01-29] MEDS: Senokot S 8.6-50 MG TAB PO SCH ×2 (09:24→20:55)
[2019-01-29] MEDS: Famotidine 20 MG TAB PO SCH ×2 (09:24→20:56)
[2019-01-29] MEDS: Ferrous Gluconate 324 MG TAB PO SCH ×2 (09:24→17:32)
[2019-01-29] MEDS: Aspirin 81 mg Enteric Coated Tablet PO SCH ×2 (09:24→20:55)
[2019-01-29] MEDS: Multivitamin W/ Minerals 1 TAB PO SCH (09:24)
[2019-01-29] MEDS: Artificial Tear Sol 15 ML BOT EA EYE SCH (09:27)
[2019-01-30] MEDS: Famotidine 20 MG TAB PO SCH ×2 (08:03→21:14)
[2019-01-30] MEDS: Multivitamin W/ Minerals 1 TAB PO SCH (08:03)
[2019-01-30] MEDS: Aspirin 81 mg Enteric Coated Tablet PO SCH ×2 (08:04→21:13)
[2019-01-30] MEDS: Gabapentin 300 MG CAP PO SCH ×3 (08:04→21:13)
[2019-01-30] MEDS: Artificial Tear Sol 15 ML BOT EA EYE SCH (08:04)
[2019-01-30] MEDS: Ferrous Gluconate 324 MG TAB PO SCH ×2 (08:04→17:38)
[2019-01-30] MEDS: Senokot S 8.6-50 MG TAB PO SCH ×2 (08:05→21:15)
[2019-01-30] MEDS: Sodium Chloride 0.9% 1,000 ML IV SCH ×3 (08:07→21:14)
[2019-01-30] MEDS: traMADol HCl 50 MG TAB PO PRN ×2 (12:30→18:34)
[2019-01-30] MEDS: Calcium Carbonate 500 MG ChewTAB PO PRN (15:48)
[2019-01-31] MEDS: Sodium Chloride 0.9% 1,000 ML IV SCH ×3 (08:04→23:56)
[2019-01-31] MEDS ORDERED: Alendronate Sodium 70 mg Tablet PO SCH (09:00)
[2019-01-31] MEDS: Famotidine 20 MG TAB PO SCH ×2 (09:02→20:46)
[2019-01-31] MEDS: Senokot S 8.6-50 MG TAB PO SCH ×2 (09:02→20:45)
[2019-01-31] MEDS: Aspirin 81 mg Enteric Coated Tablet PO SCH ×2 (09:02→20:45)
[2019-01-31] MEDS: Gabapentin 300 MG CAP PO SCH ×3 (09:02→20:45)
[2019-01-31] MEDS: Multivitamin W/ Minerals 1 TAB PO SCH (09:02)
[2019-01-31] MEDS: Ferrous Gluconate 324 MG TAB PO SCH ×2 (09:02→17:31)
[2019-01-31] MEDS: Artificial Tear Sol 15 ML BOT EA EYE SCH (09:04)
[2019-01-31] MEDS: HYDROcodone/Acetaminophen 10/325 mg Tablet PO PRN ×2 (17:36→20:44)
[2019-02-01] MEDS: HYDROcodone/Acetaminophen 10/325 mg Tablet PO PRN (03:11)
[2019-02-01] MEDS: Artificial Tear Sol 15 ML BOT EA EYE SCH (08:17)
[2019-02-01] MEDS: Gabapentin 300 MG CAP PO SCH (08:18)
[2019-02-01] MEDS: Ferrous Gluconate 324 MG TAB PO SCH (08:18)
[2019-02-01] MEDS: Famotidine 20 MG TAB PO SCH (08:18)
[2019-02-01] MEDS: Aspirin 81 mg Enteric Coated Tablet PO SCH (08:18)
[2019-02-01] MEDS: Senokot S 8.6-50 MG TAB PO SCH (08:18)
[2019-02-01] MEDS: Multivitamin W/ Minerals 1 TAB PO SCH (08:18)
[2019-02-01 11:39] VITALS: BP 112/71; TEMP 98.4
== END 2019-02-01 12:30 | DRG 468 ==
LOC: SURG A 01-24 07:16
PROVIDERS: ADMIT Orthopaedic Surgery; ATTEND Orthopaedic Surgery
PROC: 0SRA01A Replacement of Right Hip Joint, Acetabular Surface with Metal Synthetic Substitute, Uncemented, Open Approach (ICD-10-PCS; principal; 2019-01-24)
PROC: 0SPA0JZ Removal of Synthetic Substitute from Right Hip Joint, Acetabular Surface, Open Approach (ICD-10-PCS; 2019-01-24)
PROC: 3E02340 Introduction of Influenza Vaccine into Muscle, Percutaneous Approach (ICD-10-PCS; 2019-01-24)
DX: T84.030A Mechanical loosening of internal right hip prosthetic joint, initial encounter (principal); Y83.1 Surgical operation with implant of artificial internal device as the cause of abnormal reaction of the patient, or of later complication, without mention of misadventure at the time of the procedure; M81.0 Age-related osteoporosis without current pathological fracture; D50.9 Iron deficiency anemia, unspecified; Z96.641 Presence of right artificial hip joint; G62.9 Polyneuropathy, unspecified; G47.30 Sleep apnea, unspecified; I95.9 Hypotension, unspecified; Z23 Encounter for immunization; Z85.3 Personal history of malignant neoplasm of breast; Z92.21 Personal history of antineoplastic chemotherapy; Z90.12 Acquired absence of left breast and nipple; Z90.49 Acquired absence of other specified parts of digestive tract; Z90.710 Acquired absence of both cervix and uterus; Z79.82 Long term (current) use of aspirin; Z79.899 Other long term (current) drug therapy; Z99.89 Dependence on other enabling machines and devices
CPT/HCPCS: 36415; 85027; 87070; 87205; 88305; 88331; 90471; 90662; 90670; C1713; C1776; G0008; G0009; J0690; J1885; J2250; J2795; J3010; J3370; J3490; J7050

== ENCOUNTER 2019-01-18 12:45 | Outpatient (CLI) | payer MEDICARE, MEDICAID | END 2019-01-18 12:46 | disposition home or self-care (01) | LOC: LABBT 12:45 | PROVIDERS: ATTEND Orthopaedic Surgery | DX: Z01.812 Encounter for preprocedural laboratory examination (principal); T84.010A Broken internal right hip prosthesis, initial encounter | CPT/HCPCS: 86850; 86900; 86901 ==

== ENCOUNTER 2019-06-03 10:11 | Outpatient (CLI) | payer MEDICARE, MEDICAID ==
--- NOTE | 2019-06-04 14:39 | MMO ---
Bilateral MAMMO Bilat Screen [facility]. CLINICAL HISTORY: Patient is 79 years old and is seen for screening. The patient has no family history of breast cancer. The patient has a history of right Mastectomy at age 61 - malignant. VIEWS: The views performed were: bilateral craniocaudal with tomosynthesis and bilateral mediolateral oblique with tomosynthesis. FILMS COMPARED: The present examination has been compared to prior imaging studies performed at [facility] on 05/26/2016, 05/30/2017 and 05/31/2018, and at [facility] on 05/22/2015. This study has been interpreted with the assistance of computer-aided detection. MAMMOGRAM FINDINGS: There are scattered fibroglandular densities. There are vascular calcifications seen in both breasts. There are no suspicious masses, suspicious calcifications, or new areas of architectural distortion. IMPRESSION: A ROUTINE FOLLOW-UP MAMMOGRAM IN 1 YEAR IS RECOMMENDED. THE RESULTS OF THIS EXAM WERE SENT TO THE PATIENT. ACR BI-RADS Category 2 - Benign finding MAMMOGRAPHY NOTE: 1. A negative mammogram report should not delay a biopsy if a dominant of clinically suspicious mass is present. 2. Approximately 10% to 15% of breast cancers are not detected by mammography. 3. Adenosis and dense breasts may obscure an underlying neoplasm. Reported by: TORITO MENARD MD Electonically Signed: [id number]
== END 2019-06-03 10:12 | disposition home or self-care (01) ==
LOC: BICMAMMO 10:11
PROVIDERS: ATTEND Family Medicine
DX: Z12.31 Encounter for screening mammogram for malignant neoplasm of breast (principal); Z85.3 Personal history of malignant neoplasm of breast; Z90.11 Acquired absence of right breast and nipple
CPT/HCPCS: 77063; 77067

== ENCOUNTER 2019-06-12 10:56 | Emergency (ER) | payer MEDICARE, MEDICAID ==
[2019-06-12] MEDS ORDERED: HYDROcodone/Acetaminophen 5/325 mg Tablet ONE (12:10)
--- NOTE | 2019-06-12 12:16 | RAD ---
2 VIEWS LEFT HIP: Date: 06/12/2019 HISTORY: Fall with left hip pain. FINDINGS: 2 views of the left hip show the patient to have bilateral hip prostheses. There appears to be a manager market cate fracture of the right proximal femur adjacent to the femoral stem with surrounding callus. No obv ious acute fracture is seen. There is a radiopaque structure overlying the lower pelvis which could r epresent a pessary. IMPRESSION: No evidence of acute osseous abnormality. POS: TPC
--- NOTE | 2019-06-12 13:25 | RAD ---
Exam:2 views left femur HISTORY: Pain. Fall. COMPARISON: None FINDINGS: There is evidence of a left hip arthroplasty. There is suggestion of bone demineralization at the level of greater trochanter. Acute fracture is not appreciated. There is callus formation along the mid medial femoral diaphysis. No evidence of fracture at the stem of the left hip arthropla sty. There is diffuse bone demineralization. There are vascular calcifications. IMPRESSION: No definite fracture.
--- NOTE | 2019-06-12 13:43 | RAD ---
2 VIEWS LEFT KNEE: Date: 06/12/2019 COMPARISON: None. HISTORY: Fall with left knee pain. FINDINGS: 2 views of the left knee show no evidence of acute fracture or dislocation. No knee effusion is seen. There is hardware in the distal femur. Vascular calcifications are seen. Mild soft tissue swelling i s seen. IMPRESSION: No evidence of acute osseous abnormality. POS: [facility]
[2019-06-12 15:36] LABS: #Lymphocytes 1.3 thou/uL (1.20-3.40); #Monocytes 0.5 thou/uL (0.11-0.59); #Neutrophils 9.4 thou/uL (1.40-6.50); %Basophils 0.2 % (0.0-1.0); %Eosinophils 0.2 % (0.0-10.0); %Lymphocytes 11.7 % (21.0-51.0); %Monocytes 4.4 % (0.0-10.0); %Neutrophils 83.4 % (42.0-75.0); Hemoglobin 11.8 g/dL (12.0-16.0); Mean Corpuscular HGB CONC 32.9 g/dL (32.0-36.0); Mean Corpuscular Hemoglobin 28.6 pg (27.0-31.0); Mean Platelet Volume 7.8 fL (7.4-10.4); Platelet Count 351 thou/uL (130-400); RBC Distribution Width 13.3 % (11.5-14.5); Red Blood Cell (RBC) Count 4.12 mill/uL (4.20-5.40); White Blood Cell (WBC) Count 11.2 thou/uL (4.8-10.8)
[2019-06-12 16:03] LABS: ALT (SGPT) 14 U/L (8-55); AST (SGOT) 21 U/L (5-34); Albumin 3.8 g/dL (3.4-4.8); Alkaline Phosphatase 96 U/L (40-110); Anion Gap 12 mmol/L (10-20); BUN (Urea Nitrogen) 15 mg/dL (9.8-20.1); Bilirubin, Total 0.3 mg/dL (0.2-1.2); Calc. Creatinine Clearance 0 mL/min (70-130); Calcium 9.7 mg/dL (7.8-10.44); Carbon Dioxide 26 mmol/L (23-31); Chloride 104 mmol/L (98-107); Estimated GFR-MDRD 77; Globulin 4.3 g/dL (2.4-3.5); Glucose 115 mg/dL (83-110); Potassium 4.3 mmol/L (3.5-5.1); Protein, Total 8.1 g/dL (6.0-8.3); Sodium 138 mmol/L (136-145)
[2019-06-12 17:16] LABS: Bilirubin Negative (Negative); Blood, Urine Trace (Negative); Clarity Turbid (Clear); Glucose, Urine (Dipstick) Normal (Negative); Leukocyte 250 Leu/uL (Negative); Nitrite Negative (Negative); Protein, Urine (Dipstick) 20 mg/dL (Neg-Trace); Squamous Epithelial 0-3 HPF (0-3); Urobilinogen Normal mg/dL (Less than 2)
[2019-06-12 17:23] LABS: Bacteria/HPF Rare-Few HPF (None Seen)
== END 2019-06-12 18:11 | disposition home or self-care (01) ==
LOC: ERS 10:56
DX: S70.12XA Contusion of left thigh, initial encounter (principal); M19.90 Unspecified osteoarthritis, unspecified site; G62.9 Polyneuropathy, unspecified; F17.220 Nicotine dependence, chewing tobacco, uncomplicated; Z79.82 Long term (current) use of aspirin; Z79.899 Other long term (current) drug therapy; W18.30XA Fall on same level, unspecified, initial encounter; Y93.01 Activity, walking, marching and hiking
CPT/HCPCS: 36415; 80053; 81003; 81015; 85025; 93005

== ENCOUNTER 2020-06-10 13:09 | Outpatient (CLI) | payer MEDICARE, OTHER ==
--- NOTE | 2020-06-10 14:03 | MMO ---
Bilateral MAMMO Bilat Screen [facility]. CLINICAL HISTORY: Patient is 80 years old and is seen for screening. The patient has no family history of breast cancer. The patient has a history of right Mastectomy at age 61 - malignant. VIEWS: The views performed were: bilateral craniocaudal with tomosynthesis and bilateral mediolateral oblique with tomosynthesis. FILMS COMPARED: The present examination has been compared to prior imaging studies performed at [facility] on 05/26/2016, 05/30/2017, 05/31/2018 and 06/03/2019. This study has been interpreted with the assistance of computer-aided detection. MAMMOGRAM FINDINGS: There are scattered fibroglandular densities. There are benign appearing calcifications in the left breast. There are no suspicious masses, suspicious calcifications, or new areas of architectural distortion. IMPRESSION: THERE IS NO MAMMOGRAPHIC EVIDENCE OF MALIGNANCY. A ROUTINE FOLLOW-UP MAMMOGRAM IN 1 YEAR IS RECOMMENDED. THE RESULTS OF THIS EXAM WERE SENT TO THE PATIENT. ACR BI-RADS Category 2 - Benign finding MAMMOGRAPHY NOTE: 1. A negative mammogram report should not delay a biopsy if a dominant of clinically suspicious mass is present. 2. Approximately 10% to 15% of breast cancers are not detected by mammography. 3. Adenosis and dense breasts may obscure an underlying neoplasm. Reported by: LAURA DIOP MD Electonically Signed: [id number]
== END 2020-06-10 13:10 | disposition home or self-care (01) ==
LOC: BICMAMMO 13:09
PROVIDERS: ATTEND Family Medicine
DX: Z12.31 Encounter for screening mammogram for malignant neoplasm of breast (principal); Z90.11 Acquired absence of right breast and nipple
CPT/HCPCS: 77063; 77067

== ENCOUNTER 2021-05-13 08:53 | Outpatient (CLI) | payer MEDICARE, MEDICAID | END 2021-05-13 08:54 | disposition home or self-care (01) | LOC: BICULT 08:53 | PROVIDERS: ATTEND Family Medicine | DX: Z12.31 Encounter for screening mammogram for malignant neoplasm of breast (principal); R10.11 Right upper quadrant pain; Z85.3 Personal history of malignant neoplasm of breast; Z90.11 Acquired absence of right breast and nipple | CPT/HCPCS: 76700; 77063; 77067 ==

== ENCOUNTER 2021-08-25 09:10 | Inpatient (IN) | payer MEDICARE, MEDICAID ==
[2021-08-25 10:50] LABS: #Eosinphils 0.3 thou/uL (0.0-0.7); #Lymphocytes 1.4 thou/uL (1.20-3.40); #Monocytes 0.3 thou/uL (0.11-0.59); #Neutrophils 2.7 thou/uL (1.40-6.50); %Basophils 0.6 % (0.0-1.0); %Eosinophils 7.1 % (0.0-10.0); %Lymphocytes 29.6 % (21.0-51.0); %Monocytes 6.4 % (0.0-10.0); %Neutrophils 56.4 % (42.0-75.0); Hemoglobin 11.9 g/dL (12.0-16.0); Mean Corpuscular HGB CONC 32.2 g/dL (32.0-36.0); Mean Corpuscular Hemoglobin 29.7 pg (27.0-31.0); Mean Corpuscular Volume 92.2 fL (78.0-98.0); Platelet Count 317 thou/uL (130-400); RBC Distribution Width 11.8 % (11.5-14.5); White Blood Cell (WBC) Count 4.8 thou/uL (4.8-10.8)
[2021-08-25] MEDS ORDERED: Morphine 2 MG/ML VIAL ONE (10:57)
[2021-08-25] MEDS ORDERED: Ondansetron PF 4 MG/2 ML Vial ONE ×2 (10:57→16:17)
[2021-08-25 11:09] LABS: Bacteria/HPF 2+ HPF (None Seen); Bilirubin Negative (Negative); Blood, Urine Negative (Negative); Glucose, Urine (Dipstick) Normal (Negative); Ketone, Urine Negative (Negative); Leukocyte 25 Leu/uL (Negative); Nitrite Negative (Negative); Protein, Urine (Dipstick) 20 mg/dL (Neg-Trace); RBC/HPF 0-3 HPF (0-3); Specific Gravity, Urine 1.019 (1.002-1.036); Squamous Epithelial 0-3 HPF (0-3); Urobilinogen Normal mg/dL (Less than 2); pH, Urine 7.5 (5.0-9.0)
[2021-08-25 11:11] LABS: Clarity Cloudy (Clear)
[2021-08-25 11:36] LABS: ALT (SGPT) 15 U/L (8-55); AST (SGOT) 33 U/L (5-34); Albumin 3.4 g/dL (3.4-4.8); Alkaline Phosphatase 76 U/L (40-110); Anion Gap 15 mmol/L (10-20); BUN (Urea Nitrogen) 22 mg/dL (9.8-20.1); Bilirubin, Total 0.9 mg/dL (0.2-1.2); CK (CPK) 92 U/L (29-168); Calc. Creatinine Clearance 0 mL/min (70-130); Calcium 9.4 mg/dL (7.8-10.44); Carbon Dioxide 27 mmol/L (23-31); Chloride 109 mmol/L (98-107); Globulin 4.6 g/dL (2.4-3.5); Glucose 79 mg/dL (83-110); Lipase 13 U/L (8-78); Sodium 146 mmol/L (136-145)
[2021-08-25] MEDS ORDERED: Benzocaine 20% Spray 60 ML CAN ONE (12:35)
[2021-08-25 15:25] LABS: SARS-CoV-2 NAA Rapid Test Not Detected (NotDetected)
[2021-08-25] MEDS ORDERED: Phenylephrine 10 MG/ML VIAL ONE (15:54)
[2021-08-25] MEDS ORDERED: Norepinephrine 4 MG/4 ML VIAL ONE (15:54)
[2021-08-25] MEDS ORDERED: Fentanyl 250 MCG/5 ML VIAL ONE (15:54)
[2021-08-25] MEDS ORDERED: Sodium Chloride 0.9% 100 ML ONE (16:03)
[2021-08-25] MEDS ORDERED: cefOXitin 2 GM VIAL ONE (16:03)
[2021-08-25] MEDS ORDERED: Rocuronium Bromide 10 MG/ML (10ML VIAL) ONE (16:17)
[2021-08-25] MEDS ORDERED: Succinylcholine 200 MG/10 ml SYRINGE FS ONE (16:17)
[2021-08-25] MEDS ORDERED: Dexamethasone 20 MG/5 ML VIAL ONE (16:17)
[2021-08-25] MEDS ORDERED: PHENYLEPHRINE-NS 100 MCG/ML 10 ML SYRINGE ONE (16:17)
[2021-08-25] MEDS ORDERED: PROPOFOL 200 MG/20 ML VIAL ONE (16:17)
[2021-08-25] MEDS ORDERED: Ondansetron ODT 4 MG TAB PO PRN (16:53)
[2021-08-25] MEDS ORDERED: Acetaminophen 650 MG Suppository PR PRN (16:53)
[2021-08-25] MEDS ORDERED: Ondansetron PF 4 MG/2 ML Vial IVP PRN ×2 (16:53→18:23)
[2021-08-25] MEDS ORDERED: Acetaminophen 325 MG TAB PO PRN (16:53)
[2021-08-25] MEDS ORDERED: Promethazine HCl 25 MG/ML VIAL IM PRN (17:02)
[2021-08-25] MEDS ORDERED: Promethazine HCl 25 MG/ML VIAL IVPB PRN (17:02)
[2021-08-25] MEDS ORDERED: Meperidine HCl/PF 25 MG/ML VIAL SLOW IVP PRN (17:02)
[2021-08-25] MEDS ORDERED: PACU-Morphine 4MG/ML VIAL SLOW IVP PRN (17:02)
[2021-08-25] MEDS ORDERED: SUGAMMADEX SODIUM 200 MG/2 ML VIAL ONE (17:57)
[2021-08-25] MEDS ORDERED: Morphine 4 MG/ML VIAL SLOW IVP PRN (18:23)
[2021-08-25] MEDS ORDERED: Dextrose 50% Abboject 50 ML SYRINGE SLOW IVP PRN (18:23)
[2021-08-25] MEDS ORDERED: hydrALAZINE 20 MG/ML VIAL SLOW IVP PRN (18:23)
[2021-08-25] MEDS ORDERED: Dextrose 5% in Water 1,000 ML IV PRN (18:23)
[2021-08-25] MEDS ORDERED: Fentanyl 100 MCG/2 ML VIAL ONE (18:48)
[2021-08-25] MEDS ORDERED: D5 1/2 NS w/20 mEq KCL 1,000 ML ONE (18:48)
[2021-08-25] MEDS ORDERED: Famotidine/PF 20 mg/2ml Vial SLOW IVP SCH (21:00)
[2021-08-25] MEDS ORDERED: Famotidine 20 MG TAB PO SCH (21:00)
[2021-08-25] MEDS: D5 1/2 NS w/20 mEq KCL 1,000 ML IV SCH (22:06)
[2021-08-25 23:05] VITALS: BMI 21.4
[2021-08-26] MEDS: D5 1/2 NS w/20 mEq KCL 1,000 ML IV SCH ×2 (04:43→08:42)
[2021-08-26 07:26] LABS: #Monocytes 0.4 thou/uL (0.11-0.59); #Neutrophils 8.4 thou/uL (1.40-6.50); %Basophils 0.1 % (0.0-1.0); %Eosinophils 0.4 % (0.0-10.0); %Lymphocytes 9.8 % (21.0-51.0); %Monocytes 3.7 % (0.0-10.0); Hemoglobin 11.2 g/dL (12.0-16.0); Mean Corpuscular HGB CONC 31.7 g/dL (32.0-36.0); Mean Corpuscular Hemoglobin 29.7 pg (27.0-31.0); Mean Corpuscular Volume 93.5 fL (78.0-98.0); Mean Platelet Volume 8.3 fL (7.4-10.4); Platelet Count 295 thou/uL (130-400); RBC Distribution Width 11.6 % (11.5-14.5); Red Blood Cell (RBC) Count 3.77 mill/uL (4.20-5.40); White Blood Cell (WBC) Count 9.8 thou/uL (4.8-10.8)
[2021-08-26 07:43] LABS: Anion Gap 13 mmol/L (10-20); BUN (Urea Nitrogen) 17 mg/dL (9.8-20.1); Calc. Creatinine Clearance 40 mL/min (70-130); Calcium 8.5 mg/dL (7.8-10.44); Carbon Dioxide 21 mmol/L (23-31); Chloride 109 mmol/L (98-107); Glucose 213 mg/dL (83-110); Potassium 5.2 mmol/L (3.5-5.1); Sodium 138 mmol/L (136-145)
[2021-08-26] MEDS: Enoxaparin Sodium 40 MG/0.4 ML SYRINGE SC SCH (08:43)
[2021-08-26] MEDS: Dextrose 5 %-0.45 % NaCl 1,000 ML IV SCH ×2 (12:40→22:48)
[2021-08-26] MEDS: Famotidine/PF 20 mg/2ml Vial SLOW IVP SCH (20:24)
[2021-08-26] MEDS: Famotidine 20 MG TAB PO SCH (20:24)
[2021-08-26] MEDS: Morphine 2 MG/ML VIAL SLOW IVP PRN (23:46)
[2021-08-27 06:35] LABS: #Eosinphils 0.6 thou/uL (0.0-0.7); #Lymphocytes 1.5 thou/uL (1.20-3.40); #Monocytes 0.5 thou/uL (0.11-0.59); #Neutrophils 5.6 thou/uL (1.40-6.50); %Basophils 0.1 % (0.0-1.0); %Lymphocytes 17.9 % (21.0-51.0); %Monocytes 5.8 % (0.0-10.0); %Neutrophils 68.2 % (42.0-75.0); Hemoglobin 9.7 g/dL (12.0-16.0); Mean Corpuscular HGB CONC 32.6 g/dL (32.0-36.0); Mean Corpuscular Volume 92.2 fL (78.0-98.0); Mean Platelet Volume 8.6 fL (7.4-10.4); Platelet Count 294 thou/uL (130-400); RBC Distribution Width 12.1 % (11.5-14.5); Red Blood Cell (RBC) Count 3.23 mill/uL (4.20-5.40); White Blood Cell (WBC) Count 8.1 thou/uL (4.8-10.8)
[2021-08-27] MEDS: Enoxaparin Sodium 40 MG/0.4 ML SYRINGE SC SCH (08:07)
[2021-08-27] MEDS: Dextrose 5 %-0.45 % NaCl 1,000 ML IV SCH ×2 (08:08→18:07)
[2021-08-27 10:49] LABS: Anion Gap 11 mmol/L (10-20); BUN (Urea Nitrogen) 10 mg/dL (9.8-20.1); Calc. Creatinine Clearance 50 mL/min (70-130); Carbon Dioxide 22 mmol/L (23-31); Chloride 104 mmol/L (98-107); Glucose 114 mg/dL (83-110); Potassium 4.4 mmol/L (3.5-5.1); Sodium 133 mmol/L (136-145)
[2021-08-27] MEDS: Famotidine 20 MG TAB PO SCH (20:14)
[2021-08-27] MEDS: Famotidine/PF 20 mg/2ml Vial SLOW IVP SCH (21:15)
[2021-08-28] MEDS: Ampicillin/Sulbactam 1.5 GM in Sodium Chloride 0.9% 100 ML IVPB SCH ×4 (00:59→16:54)
[2021-08-28] MEDS: Dextrose 5 %-0.45 % NaCl 1,000 ML IV SCH ×3 (05:18→15:14)
[2021-08-28 06:13] LABS: #Eosinphils 0.6 thou/uL (0.0-0.7); #Lymphocytes 1.1 thou/uL (1.20-3.40); #Monocytes 0.6 thou/uL (0.11-0.59); #Neutrophils 7.3 thou/uL (1.40-6.50); %Basophils 0.1 % (0.0-1.0); %Eosinophils 5.9 % (0.0-10.0); %Lymphocytes 11.7 % (21.0-51.0); %Monocytes 6.6 % (0.0-10.0); %Neutrophils 75.7 % (42.0-75.0); Hemoglobin 10.8 g/dL (12.0-16.0); Mean Corpuscular HGB CONC 32.2 g/dL (32.0-36.0); Mean Corpuscular Hemoglobin 29.4 pg (27.0-31.0); Mean Corpuscular Volume 91.3 fL (78.0-98.0); Mean Platelet Volume 8.2 fL (7.4-10.4); Platelet Count 313 thou/uL (130-400); RBC Distribution Width 11.5 % (11.5-14.5); Red Blood Cell (RBC) Count 3.66 mill/uL (4.20-5.40); White Blood Cell (WBC) Count 9.6 thou/uL (4.8-10.8)
[2021-08-28 06:58] LABS: Anion Gap 12 mmol/L (10-20); BUN (Urea Nitrogen) 6 mg/dL (9.8-20.1); Calc. Creatinine Clearance 56 mL/min (70-130); Calcium 8.5 mg/dL (7.8-10.44); Carbon Dioxide 22 mmol/L (23-31); Chloride 105 mmol/L (98-107); Glucose 116 mg/dL (83-110); Potassium 3.6 mmol/L (3.5-5.1); Sodium 135 mmol/L (136-145)
[2021-08-28] MEDS: Enoxaparin Sodium 40 MG/0.4 ML SYRINGE SC SCH (07:57)
[2021-08-28] MEDS: Famotidine/PF 20 mg/2ml Vial SLOW IVP SCH (22:01)
[2021-08-28] MEDS: Famotidine 20 MG TAB PO SCH (22:01)
[2021-08-29] MEDS: Ampicillin/Sulbactam 1.5 GM in Sodium Chloride 0.9% 100 ML IVPB SCH ×5 (00:50→23:27)
[2021-08-29 06:49] LABS: #Eosinphils 0.7 thou/uL (0.0-0.7); #Lymphocytes 1.4 thou/uL (1.20-3.40); #Monocytes 0.8 thou/uL (0.11-0.59); #Neutrophils 9.3 thou/uL (1.40-6.50); %Basophils 0.1 % (0.0-1.0); %Eosinophils 5.7 % (0.0-10.0); %Lymphocytes 11.2 % (21.0-51.0); %Monocytes 6.5 % (0.0-10.0); %Neutrophils 76.5 % (42.0-75.0); Hemoglobin 11.2 g/dL (12.0-16.0); Mean Corpuscular Hemoglobin 29.9 pg (27.0-31.0); Mean Corpuscular Volume 90.5 fL (78.0-98.0); Mean Platelet Volume 8.3 fL (7.4-10.4); Platelet Count 312 thou/uL (130-400); RBC Distribution Width 11.4 % (11.5-14.5); Red Blood Cell (RBC) Count 3.76 mill/uL (4.20-5.40); White Blood Cell (WBC) Count 12.1 thou/uL (4.8-10.8)
[2021-08-29 07:13] LABS: Anion Gap 14 mmol/L (10-20); BUN (Urea Nitrogen) 6 mg/dL (9.8-20.1); Calc. Creatinine Clearance 56 mL/min (70-130); Calcium 8.5 mg/dL (7.8-10.44); Carbon Dioxide 20 mmol/L (23-31); Chloride 106 mmol/L (98-107); Glucose 103 mg/dL (83-110); Potassium 3.3 mmol/L (3.5-5.1); Sodium 137 mmol/L (136-145)
[2021-08-29] MEDS: Enoxaparin Sodium 40 MG/0.4 ML SYRINGE SC SCH (07:51)
[2021-08-29] MEDS: Dextrose 5 %-0.45 % NaCl 1,000 ML IV SCH (09:42)
[2021-08-29] MEDS: Potassium Chloride 20 MEQ in Lactated Ringer's 1,000 ML IV SCH (18:15)
[2021-08-29] MEDS: Famotidine 20 MG TAB PO SCH (21:21)
[2021-08-29] MEDS: Famotidine/PF 20 mg/2ml Vial SLOW IVP SCH (21:21)
[2021-08-30] MEDS: Ampicillin/Sulbactam 1.5 GM in Sodium Chloride 0.9% 100 ML IVPB SCH ×3 (06:22→18:34)
[2021-08-30] MEDS: Enoxaparin Sodium 40 MG/0.4 ML SYRINGE SC SCH (08:38)
[2021-08-30 08:43] LABS: Hemoglobin 11.7 g/dL (12.0-16.0); Mean Corpuscular Hemoglobin 29.4 pg (27.0-31.0); Mean Corpuscular Volume 92.2 fL (78.0-98.0); Platelet Count 389 thou/uL (130-400); RBC Distribution Width 11.7 % (11.5-14.5); Red Blood Cell (RBC) Count 3.98 mill/uL (4.20-5.40); White Blood Cell (WBC) Count 11.7 thou/uL (4.8-10.8)
[2021-08-30] MEDS: Potassium Chloride 20 MEQ in Lactated Ringer's 1,000 ML IV SCH ×2 (08:58→18:35)
[2021-08-30 09:01] LABS: Burr Cells SLIGHT = 2-5 cells (100X) (0-1/hpf); Eosinophils 4 % (0-10); Lymphocytes 11 % (21-51); MDiff Complete? YES; Monocytes 5 % (0-10); Neutrophil 80 % (42-75); Platelet Morphology Comment Appears Adequate; Polychromasia SLIGHT = 2-3 cells (100X) (0-2/hpf)
[2021-08-30 09:18] LABS: Anion Gap 15 mmol/L (10-20); BUN (Urea Nitrogen) 10 mg/dL (9.8-20.1); Calc. Creatinine Clearance 52 mL/min (70-130); Calcium 8.6 mg/dL (7.8-10.44); Carbon Dioxide 21 mmol/L (23-31); Chloride 106 mmol/L (98-107); Glucose 82 mg/dL (83-110); Potassium 3.6 mmol/L (3.5-5.1); Sodium 138 mmol/L (136-145)
[2021-08-30] MEDS: Famotidine 20 MG TAB PO SCH (20:52)
[2021-08-30] MEDS: Famotidine/PF 20 mg/2ml Vial SLOW IVP SCH (20:55)
[2021-08-30] MEDS: Morphine 2 MG/ML VIAL SLOW IVP PRN (20:55)
[2021-08-31] MEDS: Ampicillin/Sulbactam 1.5 GM in Sodium Chloride 0.9% 100 ML IVPB SCH ×5 (00:41→23:04)
[2021-08-31 08:00] LABS: Anion Gap 13 mmol/L (10-20); BUN (Urea Nitrogen) 10 mg/dL (9.8-20.1); Calc. Creatinine Clearance 55 mL/min (70-130); Calcium 8.4 mg/dL (7.8-10.44); Carbon Dioxide 21 mmol/L (23-31); Chloride 106 mmol/L (98-107); Glucose 85 mg/dL (83-110); Potassium 3.6 mmol/L (3.5-5.1); Sodium 136 mmol/L (136-145)
[2021-08-31] MEDS: Enoxaparin Sodium 40 MG/0.4 ML SYRINGE SC SCH (09:06)
[2021-08-31] MEDS: Potassium Chloride 20 MEQ in Lactated Ringer's 1,000 ML IV SCH (10:26)
[2021-08-31] MEDS: Famotidine 20 MG TAB PO SCH (19:06)
[2021-08-31] MEDS: Famotidine/PF 20 mg/2ml Vial SLOW IVP SCH (19:56)
[2021-08-31 21:47] LABS: SARS-CoV-2 PCR by NAA Not Detected (NotDetected)
[2021-08-31] MEDS: Morphine 2 MG/ML VIAL SLOW IVP PRN (23:03)
[2021-09-01] MEDS: Ampicillin/Sulbactam 1.5 GM in Sodium Chloride 0.9% 100 ML IVPB SCH ×2 (04:45→11:16)
[2021-09-01 07:31] LABS: Anion Gap 17 mmol/L (10-20); BUN (Urea Nitrogen) 7 mg/dL (9.8-20.1); Calc. Creatinine Clearance 57 mL/min (70-130); Calcium 8.7 mg/dL (7.8-10.44); Carbon Dioxide 15 mmol/L (23-31); Chloride 107 mmol/L (98-107); Glucose 75 mg/dL (83-110); Potassium 4.4 mmol/L (3.5-5.1); Sodium 135 mmol/L (136-145)
[2021-09-01] MEDS: Enoxaparin Sodium 40 MG/0.4 ML SYRINGE SC SCH (08:20)
[2021-09-01 14:59] VITALS: BP 119/61; TEMP 97.8
== END 2021-09-01 14:11 | disposition home or self-care (01) | DRG 335 ==
LOC: ERS 09:10 → SDC 14:02 → T4-A 18:12
PROVIDERS: ADMIT Internal Medicine; ATTEND Internal Medicine
PROC: 0DN80ZZ Release Small Intestine, Open Approach (ICD-10-PCS; principal; 2021-08-25)
PROC: 0FN40ZZ Release Gallbladder, Open Approach (ICD-10-PCS; 2021-08-25)
PROC: 0D9670Z Drainage of Stomach with Drainage Device, Via Natural or Artificial Opening (ICD-10-PCS; 2021-08-25)
DX: K56.50 Intestinal adhesions [bands], unspecified as to partial versus complete obstruction (principal); Z20.822 Contact with and (suspected) exposure to COVID-19; J96.01 Acute respiratory failure with hypoxia; J69.0 Pneumonitis due to inhalation of food and vomit; E87.1 Hypo-osmolality and hyponatremia; N17.9 Acute kidney failure, unspecified; E87.0 Hyperosmolality and hypernatremia; F05 Delirium due to known physiological condition; K63.89 Other specified diseases of intestine; K56.2 Volvulus; M19.90 Unspecified osteoarthritis, unspecified site; Z96.643 Presence of artificial hip joint, bilateral; F17.220 Nicotine dependence, chewing tobacco, uncomplicated; E86.0 Dehydration; D64.9 Anemia, unspecified; E86.9 Volume depletion, unspecified; E87.5 Hyperkalemia; Y95 Nosocomial condition; K56.7 Ileus, unspecified; Z78.1 Physical restraint status; Z85.3 Personal history of malignant neoplasm of breast; Z79.899 Other long term (current) drug therapy; Z79.82 Long term (current) use of aspirin; Z90.710 Acquired absence of both cervix and uterus; Z90.10 Acquired absence of unspecified breast and nipple
CPT/HCPCS: 36415; 71045; 74177; 80048; 80053; 81003; 81015; 82550; 83690; 84484; 85025; 87086; 93005; 96374; 96375; C1776; J0295; J0694; J1100; J1650; J2270; J2370; J2405; J2704; J3010; J3480; J3490; J7042; J7120; S0028; U0002; U0003; U0005

== ENCOUNTER 2021-09-01 19:16 | Inpatient (IN) | payer MEDICARE, MEDICAID ==
[2021-09-01] MEDS ORDERED: Morphine 4 MG/ML VIAL ONE (20:59)
[2021-09-01] MEDS ORDERED: Ondansetron PF 4 MG/2 ML Vial ONE (21:08)
[2021-09-01 21:41] LABS: #Eosinphils 0.1 thou/uL (0.0-0.7); #Lymphocytes 1.2 thou/uL (1.20-3.40); #Neutrophils 11.1 thou/uL (1.40-6.50); %Basophils 0.1 % (0.0-1.0); %Lymphocytes 8.9 % (21.0-51.0); %Monocytes 7.3 % (0.0-10.0); %Neutrophils 82.7 % (42.0-75.0); Hemoglobin 11.4 g/dL (12.0-16.0); Mean Corpuscular HGB CONC 31.8 g/dL (32.0-36.0); Mean Corpuscular Volume 91.2 fL (78.0-98.0); Mean Platelet Volume 7.5 fL (7.4-10.4); Platelet Count 450 thou/uL (130-400); RBC Distribution Width 11.9 % (11.5-14.5); Red Blood Cell (RBC) Count 3.93 mill/uL (4.20-5.40); White Blood Cell (WBC) Count 13.4 thou/uL (4.8-10.8)
[2021-09-01 21:57] LABS: ALT (SGPT) 14 U/L (8-55); AST (SGOT) 19 U/L (5-34); Albumin 3.5 g/dL (3.4-4.8); Alkaline Phosphatase 79 U/L (40-110); Anion Gap 19 mmol/L (10-20); BUN (Urea Nitrogen) 9 mg/dL (9.8-20.1); Bilirubin, Total 0.8 mg/dL (0.2-1.2); Calc. Creatinine Clearance 0 mL/min (70-130); Calcium 8.9 mg/dL (7.8-10.44); Carbon Dioxide 15 mmol/L (23-31); Chloride 103 mmol/L (98-107); Globulin 4.6 g/dL (2.4-3.5); Glucose 137 mg/dL (83-110); Lipase 26 U/L (8-78); Potassium 3.4 mmol/L (3.5-5.1); Protein, Total 8.1 g/dL (5.8-8.1); Sodium 134 mmol/L (136-145)
[2021-09-02] MEDS ORDERED: Ondansetron PF 4 MG/2 ML Vial IVP PRN ×2 (00:22→00:30)
[2021-09-02] MEDS ORDERED: Morphine 4 MG/ML VIAL SLOW IVP PRN (00:26)
[2021-09-02] MEDS ORDERED: Ondansetron ODT 4 MG TAB SL PRN (00:30)
[2021-09-02] MEDS ORDERED: Acetaminophen 325 MG TAB PO PRN (00:30)
[2021-09-02] MEDS ORDERED: Potassium Bicarbonate/Cit Ac 20 MEQ TAB PO SCH (00:45)
[2021-09-02] MEDS ORDERED: Ketorolac Tromethamine 30 MG/ML VIAL ONE (01:10)
[2021-09-02 01:38] LABS: Bacteria/HPF None Seen HPF (None Seen); Bilirubin Negative (Negative); Blood, Urine 2+ (Negative); Clarity Clear (Clear); Glucose, Urine (Dipstick) 300 mg/dL (Negative); Ketone, Urine 40 mg/dL (Negative); Leukocyte 500 Leu/uL (Negative); Nitrite Negative (Negative); Protein, Urine (Dipstick) 30 mg/dL (Neg-Trace); Specific Gravity, Urine 1.019 (1.002-1.036); Squamous Epithelial 0-3 HPF (0-3); Urobilinogen Normal mg/dL (Less than 2); WBC/HPF Greater than 50 HPF (0-3)
[2021-09-02] MEDS ORDERED: Enoxaparin Sodium 60 MG/0.6 ML SYRINGE ONE (01:58)
[2021-09-02] MEDS ORDERED: Enoxaparin Sodium 40 MG/0.4 ML SYRINGE SC SCH ×2 (03:00→09:00)
[2021-09-02] MEDS: cefTRIAXone\\ROCEPHIN 1 GM in Sodium Chloride 0.9% 100 ML IVPB SCH (03:26)
[2021-09-02] MEDS: Lactated Ringer's 1,000 ML IV SCH ×2 (04:04→13:48)
[2021-09-02 04:17] LABS: #Eosinphils 0.1 thou/uL (0.0-0.7); #Lymphocytes 1.4 thou/uL (1.20-3.40); #Monocytes 1.5 thou/uL (0.11-0.59); #Neutrophils 11.9 thou/uL (1.40-6.50); %Basophils 0.3 % (0.0-1.0); %Eosinophils 0.5 % (0.0-10.0); %Lymphocytes 9.3 % (21.0-51.0); Hemoglobin 11.9 g/dL (12.0-16.0); Mean Corpuscular HGB CONC 32.4 g/dL (32.0-36.0); Mean Corpuscular Hemoglobin 29.4 pg (27.0-31.0); Mean Corpuscular Volume 90.7 fL (78.0-98.0); Mean Platelet Volume 7.4 fL (7.4-10.4); Platelet Count 421 thou/uL (130-400); RBC Distribution Width 11.8 % (11.5-14.5); Red Blood Cell (RBC) Count 4.04 mill/uL (4.20-5.40); White Blood Cell (WBC) Count 14.9 thou/uL (4.8-10.8)
[2021-09-02 04:41] LABS: Anion Gap 19 mmol/L (10-20); BUN (Urea Nitrogen) 7 mg/dL (9.8-20.1); Calc. Creatinine Clearance 44 mL/min (70-130); Calcium 8.8 mg/dL (7.8-10.44); Carbon Dioxide 18 mmol/L (23-31); Chloride 100 mmol/L (98-107); Glucose 149 mg/dL (83-110); Magnesium 1.7 mg/dL (1.6-2.6); Potassium 3.4 mmol/L (3.5-5.1); Sodium 134 mmol/L (136-145)
[2021-09-02] MEDS ORDERED: HYDROcodone/Acetaminophen 10/325 mg Tablet PO PRN (08:00)
[2021-09-02] MEDS ORDERED: CARBOXYMETHYLCELLULOSE SODIUM OP SCH (09:00)
[2021-09-02] MEDS ORDERED: Alendronate Sodium 70 mg Tablet PO SCH ×2 (09:00)
[2021-09-02] MEDS ORDERED: Non-Formulary Item 1 EACH (Multivit-Min/Iron/Folic/Lutein [Centrum Silver Women] 1 TABLET PO SCH (09:00)
[2021-09-02] MEDS: Gabapentin 300 MG CAP PO SCH ×3 (09:52→21:23)
[2021-09-02] MEDS: Artificial Tear Sol 15 ML BOT EA EYE SCH (09:54)
[2021-09-02] MEDS: Ferrous Gluconate 324 MG TAB PO SCH ×2 (09:54→21:23)
[2021-09-02] MEDS: Multivitamin W/ Minerals 1 TAB PO SCH (09:54)
[2021-09-02] MEDS: Aspirin 81 mg Enteric Coated Tablet PO SCH ×2 (09:54→21:23)
[2021-09-02] MEDS: traMADol HCl 50 MG TAB PO PRN (21:35)
[2021-09-03] MEDS: cefTRIAXone\\ROCEPHIN 1 GM in Sodium Chloride 0.9% 100 ML IVPB SCH (02:58)
[2021-09-03 04:19] LABS: #Eosinphils 0.6 thou/uL (0.0-0.7); #Lymphocytes 2.1 thou/uL (1.20-3.40); #Monocytes 1.8 thou/uL (0.11-0.59); #Neutrophils 9.7 thou/uL (1.40-6.50); %Basophils 0.3 % (0.0-1.0); %Eosinophils 4.1 % (0.0-10.0); %Monocytes 12.4 % (0.0-10.0); %Neutrophils 68.1 % (42.0-75.0); Hemoglobin 12.4 g/dL (12.0-16.0); Mean Corpuscular HGB CONC 32.4 g/dL (32.0-36.0); Mean Corpuscular Hemoglobin 28.9 pg (27.0-31.0); Mean Corpuscular Volume 89.3 fL (78.0-98.0); Mean Platelet Volume 7.3 fL (7.4-10.4); Platelet Count 461 thou/uL (130-400); RBC Distribution Width 11.7 % (11.5-14.5); Red Blood Cell (RBC) Count 4.29 mill/uL (4.20-5.40); White Blood Cell (WBC) Count 14.2 thou/uL (4.8-10.8)
[2021-09-03 04:35] LABS: Anion Gap 17 mmol/L (10-20); BUN (Urea Nitrogen) 11 mg/dL (9.8-20.1); Calc. Creatinine Clearance 41 mL/min (70-130); Calcium 9.4 mg/dL (7.8-10.44); Carbon Dioxide 22 mmol/L (23-31); Chloride 95 mmol/L (98-107); Glucose 111 mg/dL (83-110); Magnesium 1.7 mg/dL (1.6-2.6); Potassium 3.5 mmol/L (3.5-5.1); Sodium 130 mmol/L (136-145)
[2021-09-03] MEDS ORDERED: Enoxaparin Sodium 40 MG/0.4 ML SYRINGE SC SCH (09:00)
[2021-09-03] MEDS: Aspirin 81 mg Enteric Coated Tablet PO SCH ×2 (09:53→20:40)
[2021-09-03] MEDS: Gabapentin 300 MG CAP PO SCH ×3 (09:53→20:40)
[2021-09-03] MEDS: Artificial Tear Sol 15 ML BOT EA EYE SCH (09:53)
[2021-09-03] MEDS: Enoxaparin Sodium 30 MG/0.3 ML SYRINGE SC SCH (09:53)
[2021-09-03] MEDS: Multivitamin W/ Minerals 1 TAB PO SCH (09:54)
[2021-09-03] MEDS: Ferrous Gluconate 324 MG TAB PO SCH ×2 (09:54→20:40)
[2021-09-03] MEDS: Sodium Chloride 0.9% 1,000 ML IV SCH ×2 (10:52→16:29)
[2021-09-03] MEDS ORDERED: Sodium Chloride 0.9% 500 ML IV SCH (12:00)
[2021-09-03 14:12] LABS: Anion Gap 17 mmol/L (10-20); BUN (Urea Nitrogen) 16 mg/dL (9.8-20.1); Calc. Creatinine Clearance 26 mL/min (70-130); Calcium 9.3 mg/dL (7.8-10.44); Carbon Dioxide 19 mmol/L (23-31); Chloride 97 mmol/L (98-107); Glucose 81 mg/dL (83-110); Magnesium 1.7 mg/dL (1.6-2.6); Potassium 3.9 mmol/L (3.5-5.1); Sodium 129 mmol/L (136-145)
[2021-09-03] MEDS ORDERED: Sodium Chloride 0.9% 1,000 ML IV SCH ×4 (14:30→18:00)
[2021-09-03] MEDS ORDERED: Meropenem 1 GM in Sodium Chloride 0.9% 100 ML IVPB SCH (16:15)
[2021-09-03] MEDS: Norepinephrine 8 MG/0.9% NS 250 ML IVPB SCH (16:30)
[2021-09-03] MEDS ORDERED: Lidocaine 1% (PF) 30 ML VIAL ONE (16:39)
[2021-09-03 17:28] LABS: Actual Bicarbonate (HCO3a) 19.2 mEq/L (22-28); Base Excess (BEa) -5.5 mEq/L (-2.0 to +3.0); CO2 Tension 34.4 mmHg (35.0-45.0); Calcium, Ionized (arterial) 1.11 mmol/L (1.12-1.30); Carboxyhemoglobin (COHb) 0.3 gm% (0.0-3.0); Hemoglobin (Hb) 10.9 g/dL (12.0-16.0); O2 Tension (PaO2), arterial 112.4 mmHg (> 60.0); Potassium - ABG Lab 3.22 mmol/L (3.70-5.30); Puncture Site Arterial Line; pH, Arterial 7.36 (7.35-7.45)
[2021-09-03] MEDS ORDERED: Lorazepam 2 MG/ML VIAL SLOW IVP SCH (17:45)
[2021-09-03] MEDS ORDERED: Vancomycin HCl 750 MG in Sodium Chloride 0.9% 250 ML 250 ML IVPB SCH (20:00)
[2021-09-03] MEDS ORDERED: Famotidine/PF 20 mg/2ml Vial SLOW IVP SCH (20:15)
[2021-09-03 21:08] LABS: ALT (SGPT) 11 U/L (8-55); AST (SGOT) 20 U/L (5-34); Albumin 2.5 g/dL (3.4-4.8); Alkaline Phosphatase 68 U/L (40-110); Anion Gap 14 mmol/L (10-20); BUN (Urea Nitrogen) 17 mg/dL (9.8-20.1); Bilirubin, Total 0.4 mg/dL (0.2-1.2); Calc. Creatinine Clearance 27 mL/min (70-130); Calcium 7.9 mg/dL (7.8-10.44); Carbon Dioxide 20 mmol/L (23-31); Chloride 104 mmol/L (98-107); Globulin 3.4 g/dL (2.4-3.5); Glucose 88 mg/dL (83-110); Potassium 3.5 mmol/L (3.5-5.1); Protein, Total 5.9 g/dL (5.8-8.1); Sodium 134 mmol/L (136-145)
[2021-09-03] MEDS ORDERED: Lactated Ringer's 1,000 ML IV SCH ×2 (23:00)
[2021-09-04] MEDS: Lactated Ringer's 1,000 ML IV SCH ×2 (00:29→11:51)
[2021-09-04] MEDS ORDERED: Meropenem 500 MG in Sodium Chloride 0.9% 100 ML IVPB SCH (04:15)
[2021-09-04 04:52] LABS: Anion Gap 13 mmol/L (10-20); BUN (Urea Nitrogen) 18 mg/dL (9.8-20.1); Calc. Creatinine Clearance 34 mL/min (70-130); Calcium 7.6 mg/dL (7.8-10.44); Carbon Dioxide 18 mmol/L (23-31); Chloride 107 mmol/L (98-107); Glucose 71 mg/dL (83-110); Magnesium 1.4 mg/dL (1.6-2.6); Potassium 3.8 mmol/L (3.5-5.1); Sodium 134 mmol/L (136-145)
[2021-09-04 06:00] LABS: Hemoglobin 9.6 g/dL (12.0-16.0); Mean Corpuscular HGB CONC 30.9 g/dL (32.0-36.0); Mean Corpuscular Hemoglobin 28.4 pg (27.0-31.0); Mean Corpuscular Volume 91.9 fL (78.0-98.0); Mean Platelet Volume 7.4 fL (7.4-10.4); Platelet Count 353 thou/uL (130-400); RBC Distribution Width 11.9 % (11.5-14.5); Red Blood Cell (RBC) Count 3.38 mill/uL (4.20-5.40); White Blood Cell (WBC) Count 21.5 thou/uL (4.8-10.8)
[2021-09-04 06:10] LABS: Band 16 % (5-11); Eosinophils 2 % (0-10); Lymphocytes 17 % (21-51); MDiff Complete? YES; Monocytes 12 % (0-10); Myelocyte 2 % (0-0); Neutrophil 51 % (42-75)
[2021-09-04] MEDS ORDERED: Electrolyte Replacement Protocol FS PRN (06:45)
[2021-09-04] MEDS: Norepinephrine 8 MG/0.9% NS 250 ML IVPB SCH (07:03)
[2021-09-04] MEDS: Famotidine/PF 20 mg/2ml Vial SLOW IVP SCH (08:51)
[2021-09-04] MEDS: Enoxaparin Sodium 30 MG/0.3 ML SYRINGE SC SCH (08:52)
[2021-09-04] MEDS: Artificial Tear Sol 15 ML BOT EA EYE SCH (08:56)
[2021-09-04] MEDS: Gabapentin 300 MG CAP PO SCH ×3 (08:57→21:32)
[2021-09-04] MEDS: Multivitamin W/ Minerals 1 TAB PO SCH (08:58)
[2021-09-04] MEDS: Ferrous Gluconate 324 MG TAB PO SCH ×2 (08:59→21:32)
[2021-09-04] MEDS: Aspirin 81 mg Enteric Coated Tablet PO SCH (09:00)
[2021-09-04] MEDS ORDERED: Magnesium Sulfate In Water 4 GM in Premix Bag 1 BAG IVPB SCH (09:00)
[2021-09-04] MEDS: Meropenem 1 GM in Sodium Chloride 0.9% 100 ML IVPB SCH (15:07)
[2021-09-04] MEDS ORDERED: Vancomycin HCl 750 MG in Sodium Chloride 0.9% 250 ML 250 ML IVPB SCH (20:00)
[2021-09-04 20:24] LABS: Vancomycin, Random 5.1 ug/mL (See Comment)
[2021-09-04] MEDS ORDERED: Vancomycin 1 GM in Premix Bag 1 BAG IVPB SCH (22:00)
[2021-09-05] MEDS: Lactated Ringer's 1,000 ML IV SCH ×3 (03:26→20:31)
[2021-09-05] MEDS: Meropenem 1 GM in Sodium Chloride 0.9% 100 ML IVPB SCH ×2 (04:56→15:13)
[2021-09-05 08:50] LABS: #Eosinphils 0.6 thou/uL (0.0-0.7); #Lymphocytes 1.3 thou/uL (1.20-3.40); #Monocytes 1.3 thou/uL (0.11-0.59); #Neutrophils 7.3 thou/uL (1.40-6.50); %Basophils 0.2 % (0.0-1.0); %Lymphocytes 12.2 % (21.0-51.0); %Monocytes 12.4 % (0.0-10.0); %Neutrophils 69.1 % (42.0-75.0); Hemoglobin 7.8 g/dL (12.0-16.0); Mean Corpuscular HGB CONC 31.4 g/dL (32.0-36.0); Mean Corpuscular Hemoglobin 28.8 pg (27.0-31.0); Mean Corpuscular Volume 91.8 fL (78.0-98.0); Platelet Count 285 thou/uL (130-400); RBC Distribution Width 11.9 % (11.5-14.5); White Blood Cell (WBC) Count 10.6 thou/uL (4.8-10.8)
[2021-09-05] MEDS: Artificial Tear Sol 15 ML BOT EA EYE SCH (08:56)
[2021-09-05] MEDS: Famotidine/PF 20 mg/2ml Vial SLOW IVP SCH (08:56)
[2021-09-05 09:05] LABS: Anion Gap 11 mmol/L (10-20); BUN (Urea Nitrogen) 9 mg/dL (9.8-20.1); Calc. Creatinine Clearance 51 mL/min (70-130); Calcium 7.5 mg/dL (7.8-10.44); Carbon Dioxide 19 mmol/L (23-31); Chloride 110 mmol/L (98-107); Glucose 63 mg/dL (83-110); Magnesium 1.8 mg/dL (1.6-2.6); Sodium 137 mmol/L (136-145)
[2021-09-05 09:19] LABS: Phosphorus 1.9 mg/dL (2.3-4.7)
[2021-09-05] MEDS: Multivitamin W/ Minerals 1 TAB PO SCH (09:45)
[2021-09-05] MEDS ORDERED: Potassium Phosphate 30 MMOL in Sodium Chloride 0.9% 500 ML IVPB SCH (09:45)
[2021-09-05] MEDS ORDERED: Potassium Phosphate 30 MMOL in Sodium Chloride 0.9% 250 ML 250 ML IVPB SCH (09:45)
[2021-09-05] MEDS: Gabapentin 300 MG CAP PO SCH ×3 (09:45→20:31)
[2021-09-05] MEDS: Ferrous Gluconate 324 MG TAB PO SCH ×2 (09:46→20:31)
[2021-09-05] MEDS ORDERED: Potassium Chloride 20 MEQ TAB PO SCH (10:00)
[2021-09-05] MEDS: Potassium Chloride 20 MEQ in Premix Bag 1 BAG IVPB SCH ×2 (10:33→12:07)
[2021-09-05] MEDS ORDERED: Magnesium 2 GM/50 ML(in water) 2 GM in Premix Bag 1 BAG IVPB SCH (12:00)
[2021-09-05] MEDS: Acetaminophen 325 MG TAB PO PRN (12:06)
[2021-09-05] MEDS: Norepinephrine 8 MG/0.9% NS 250 ML IVPB SCH (13:33)
[2021-09-05 14:12] LABS: #Basophils 0.1 thou/uL (0.0-0.2); #Eosinphils 0.7 thou/uL (0.0-0.7); #Lymphocytes 2.1 thou/uL (1.20-3.40); #Monocytes 2.1 thou/uL (0.11-0.59); #Neutrophils 11.6 thou/uL (1.40-6.50); %Basophils 0.4 % (0.0-1.0); %Eosinophils 4.1 % (0.0-10.0); %Lymphocytes 12.5 % (21.0-51.0); %Monocytes 12.5 % (0.0-10.0); %Neutrophils 70.4 % (42.0-75.0); Hemoglobin 8.7 g/dL (12.0-16.0); Mean Corpuscular HGB CONC 32.4 g/dL (32.0-36.0); Mean Corpuscular Hemoglobin 29.2 pg (27.0-31.0); Platelet Count 355 thou/uL (130-400); RBC Distribution Width 11.9 % (11.5-14.5); Red Blood Cell (RBC) Count 2.97 mill/uL (4.20-5.40); White Blood Cell (WBC) Count 16.5 thou/uL (4.8-10.8)
[2021-09-05 17:03] LABS: #Eosinphils 0.7 thou/uL (0.0-0.7); #Lymphocytes 1.3 thou/uL (1.20-3.40); #Monocytes 1.5 thou/uL (0.11-0.59); #Neutrophils 10.9 thou/uL (1.40-6.50); %Basophils 0.2 % (0.0-1.0); %Eosinophils 4.7 % (0.0-10.0); %Lymphocytes 8.8 % (21.0-51.0); %Monocytes 10.3 % (0.0-10.0); %Neutrophils 76.1 % (42.0-75.0); Hemoglobin 8.5 g/dL (12.0-16.0); Mean Corpuscular HGB CONC 32.3 g/dL (32.0-36.0); Mean Corpuscular Hemoglobin 29.1 pg (27.0-31.0); Mean Corpuscular Volume 90.4 fL (78.0-98.0); Platelet Count 339 thou/uL (130-400); RBC Distribution Width 11.9 % (11.5-14.5); Red Blood Cell (RBC) Count 2.93 mill/uL (4.20-5.40); White Blood Cell (WBC) Count 14.3 thou/uL (4.8-10.8)
[2021-09-05 17:26] LABS: Anion Gap 11 mmol/L (10-20); BUN (Urea Nitrogen) 9 mg/dL (9.8-20.1); Calc. Creatinine Clearance 51 mL/min (70-130); Calcium 7.7 mg/dL (7.8-10.44); Carbon Dioxide 20 mmol/L (23-31); Chloride 110 mmol/L (98-107); Glucose 95 mg/dL (83-110); Potassium 4.6 mmol/L (3.5-5.1); Sodium 136 mmol/L (136-145)
[2021-09-05 21:53] LABS: Vancomycin, Random 8.6 ug/mL (See Comment)
[2021-09-05] MEDS ORDERED: Vancomycin HCl 750 MG in Sodium Chloride 0.9% 250 ML 250 ML IVPB SCH (22:30)
[2021-09-06] MEDS: Meropenem 1 GM in Sodium Chloride 0.9% 100 ML IVPB SCH ×3 (02:59→20:45)
[2021-09-06 04:37] LABS: #Eosinphils 0.9 thou/uL (0.0-0.7); #Lymphocytes 1.1 thou/uL (1.20-3.40); #Neutrophils 9.5 thou/uL (1.40-6.50); %Basophils 0.2 % (0.0-1.0); %Lymphocytes 9.1 % (21.0-51.0); %Neutrophils 75.8 % (42.0-75.0); Mean Corpuscular HGB CONC 32.2 g/dL (32.0-36.0); Mean Corpuscular Hemoglobin 29.4 pg (27.0-31.0); Mean Corpuscular Volume 91.4 fL (78.0-98.0); Mean Platelet Volume 7.2 fL (7.4-10.4); Platelet Count 341 thou/uL (130-400); RBC Distribution Width 11.9 % (11.5-14.5); Red Blood Cell (RBC) Count 2.71 mill/uL (4.20-5.40); White Blood Cell (WBC) Count 12.5 thou/uL (4.8-10.8)
[2021-09-06 05:04] LABS: Anion Gap 12 mmol/L (10-20); BUN (Urea Nitrogen) 7 mg/dL (9.8-20.1); Calc. Creatinine Clearance 57 mL/min (70-130); Carbon Dioxide 20 mmol/L (23-31); Chloride 110 mmol/L (98-107); Glucose 63 mg/dL (83-110); Potassium 4.1 mmol/L (3.5-5.1); Sodium 138 mmol/L (136-145)
[2021-09-06 05:09] LABS: Phosphorus 2.8 mg/dL (2.3-4.7)
[2021-09-06] MEDS: Ferrous Gluconate 324 MG TAB PO SCH ×2 (10:01→20:44)
[2021-09-06] MEDS: Gabapentin 300 MG CAP PO SCH ×3 (10:01→20:44)
[2021-09-06] MEDS: Multivitamin W/ Minerals 1 TAB PO SCH (10:07)
[2021-09-06] MEDS: Famotidine/PF 20 mg/2ml Vial SLOW IVP SCH (10:07)
[2021-09-06] MEDS: Artificial Tear Sol 15 ML BOT EA EYE SCH (15:41)
[2021-09-06] MEDS: Acetaminophen 325 MG TAB PO PRN (20:51)
[2021-09-06 22:48] LABS: Vancomycin, Random 8.8 ug/mL (See Comment)
[2021-09-06] MEDS ORDERED: Vancomycin HCl 750 MG in Sodium Chloride 0.9% 250 ML 250 ML IVPB SCH (23:00)
[2021-09-07] MEDS: Meropenem 1 GM in Sodium Chloride 0.9% 100 ML IVPB SCH ×3 (04:15→20:23)
[2021-09-07 04:39] LABS: #Basophils 0.1 thou/uL (0.0-0.2); #Eosinphils 0.9 thou/uL (0.0-0.7); #Lymphocytes 1.2 thou/uL (1.20-3.40); #Neutrophils 6.5 thou/uL (1.40-6.50); %Basophils 0.7 % (0.0-1.0); %Eosinophils 9.1 % (0.0-10.0); %Lymphocytes 12.3 % (21.0-51.0); %Monocytes 10.1 % (0.0-10.0); %Neutrophils 67.8 % (42.0-75.0); Mean Corpuscular HGB CONC 32.2 g/dL (32.0-36.0); Mean Corpuscular Hemoglobin 29.2 pg (27.0-31.0); Mean Corpuscular Volume 90.8 fL (78.0-98.0); Mean Platelet Volume 6.9 fL (7.4-10.4); Platelet Count 352 thou/uL (130-400); RBC Distribution Width 11.9 % (11.5-14.5); Red Blood Cell (RBC) Count 2.38 mill/uL (4.20-5.40); White Blood Cell (WBC) Count 9.5 thou/uL (4.8-10.8)
[2021-09-07 05:12] LABS: ALT (SGPT) 11 U/L (8-55); AST (SGOT) 16 U/L (5-34); Albumin 1.9 g/dL (3.4-4.8); Alkaline Phosphatase 55 U/L (40-110); Anion Gap 11 mmol/L (10-20); BUN (Urea Nitrogen) 9 mg/dL (9.8-20.1); Bilirubin, Total 0.4 mg/dL (0.2-1.2); Calc. Creatinine Clearance 54 mL/min (70-130); Calcium 7.8 mg/dL (7.8-10.44); Carbon Dioxide 21 mmol/L (23-31); Chloride 108 mmol/L (98-107); Globulin 2.9 g/dL (2.4-3.5); Magnesium 1.7 mg/dL (1.6-2.6); Potassium 3.7 mmol/L (3.5-5.1); Protein, Total 4.8 g/dL (5.8-8.1); Sodium 136 mmol/L (136-145)
[2021-09-07 05:28] LABS: Glucose 58 mg/dL (83-110)
[2021-09-07] MEDS ORDERED: Dextrose 50% Abboject 50 ML SYRINGE SLOW IVP PRN (05:30)
[2021-09-07] MEDS ORDERED: Dextrose 5% in Water 1,000 ML IV PRN (05:30)
[2021-09-07] MEDS ORDERED: Magnesium 2 GM/50 ML(in water) 2 GM in Premix Bag 1 BAG IVPB SCH (06:00)
[2021-09-07] MEDS: Gabapentin 300 MG CAP PO SCH ×3 (09:38→20:23)
[2021-09-07] MEDS: Ferrous Gluconate 324 MG TAB PO SCH ×2 (09:39→20:23)
[2021-09-07] MEDS: Artificial Tear Sol 15 ML BOT EA EYE SCH (09:39)
[2021-09-07] MEDS: Multivitamin W/ Minerals 1 TAB PO SCH (09:39)
[2021-09-07] MEDS: Famotidine/PF 20 mg/2ml Vial SLOW IVP SCH (09:40)
[2021-09-08] MEDS: Meropenem 1 GM in Sodium Chloride 0.9% 100 ML IVPB SCH ×2 (03:04→15:50)
[2021-09-08 04:24] LABS: ALT (SGPT) 9 U/L (8-55); AST (SGOT) 17 U/L (5-34); Albumin 1.9 g/dL (3.4-4.8); Alkaline Phosphatase 54 U/L (40-110); Anion Gap 10 mmol/L (10-20); BUN (Urea Nitrogen) 8 mg/dL (9.8-20.1); Bilirubin, Total 0.3 mg/dL (0.2-1.2); Calc. Creatinine Clearance 50 mL/min (70-130); Calcium 7.5 mg/dL (7.8-10.44); Carbon Dioxide 23 mmol/L (23-31); Chloride 108 mmol/L (98-107); Globulin 3.1 g/dL (2.4-3.5); Glucose 72 mg/dL (83-110); Sodium 137 mmol/L (136-145)
[2021-09-08 05:38] LABS: Band 11 % (5-11); Eosinophils 7 % (0-10); Hemoglobin 6.9 g/dL (12.0-16.0); Lymphocytes 20 % (21-51); MDiff Complete? YES; Mean Corpuscular HGB CONC 32.3 g/dL (32.0-36.0); Mean Corpuscular Hemoglobin 29.1 pg (27.0-31.0); Mean Corpuscular Volume 90.1 fL (78.0-98.0); Monocytes 6 % (0-10); Neutrophil 56 % (42-75); Platelet Count 361 thou/uL (130-400); RBC Distribution Width 11.8 % (11.5-14.5); Red Blood Cell (RBC) Count 2.36 mill/uL (4.20-5.40); White Blood Cell (WBC) Count 6.9 thou/uL (4.8-10.8)
[2021-09-08] MEDS ORDERED: Magnesium 2 GM/50 ML(in water) 2 GM in Premix Bag 1 BAG IVPB SCH (06:30)
[2021-09-08] MEDS: Ferrous Gluconate 324 MG TAB PO SCH ×2 (07:32→20:11)
[2021-09-08] MEDS: Multivitamin W/ Minerals 1 TAB PO SCH (07:32)
[2021-09-08] MEDS: Gabapentin 300 MG CAP PO SCH ×3 (07:32→20:11)
[2021-09-08] MEDS: Artificial Tear Sol 15 ML BOT EA EYE SCH (07:33)
[2021-09-08] MEDS: Famotidine/PF 20 mg/2ml Vial SLOW IVP SCH (07:33)
[2021-09-08 13:49] VITALS: BMI 26.4
[2021-09-08] MEDS: Acetaminophen 325 MG TAB PO PRN (19:22)
[2021-09-08] MEDS: traMADol HCl 50 MG TAB PO PRN (22:17)
[2021-09-09] MEDS: Meropenem 1 GM in Sodium Chloride 0.9% 100 ML IVPB SCH ×2 (03:13→17:10)
[2021-09-09 03:57] LABS: #Eosinphils 0.6 thou/uL (0.0-0.7); #Lymphocytes 1.1 thou/uL (1.20-3.40); #Monocytes 0.7 thou/uL (0.11-0.59); #Neutrophils 3.5 thou/uL (1.40-6.50); %Basophils 0.5 % (0.0-1.0); %Eosinophils 9.3 % (0.0-10.0); %Lymphocytes 18.2 % (21.0-51.0); %Monocytes 12.4 % (0.0-10.0); %Neutrophils 59.7 % (42.0-75.0); Hemoglobin 8.8 g/dL (12.0-16.0); Mean Corpuscular HGB CONC 31.4 g/dL (32.0-36.0); Mean Corpuscular Hemoglobin 28.7 pg (27.0-31.0); Mean Corpuscular Volume 91.6 fL (78.0-98.0); Mean Platelet Volume 7.1 fL (7.4-10.4); Platelet Count 328 thou/uL (130-400); RBC Distribution Width 11.9 % (11.5-14.5); Red Blood Cell (RBC) Count 3.05 mill/uL (4.20-5.40); White Blood Cell (WBC) Count 5.9 thou/uL (4.8-10.8)
[2021-09-09 04:06] LABS: ALT (SGPT) 10 U/L (8-55); AST (SGOT) 16 U/L (5-34); Alkaline Phosphatase 54 U/L (40-110); Anion Gap 10 mmol/L (10-20); BUN (Urea Nitrogen) 10 mg/dL (9.8-20.1); Bilirubin, Total 0.6 mg/dL (0.2-1.2); Calc. Creatinine Clearance 58 mL/min (70-130); Calcium 7.9 mg/dL (7.8-10.44); Carbon Dioxide 24 mmol/L (23-31); Chloride 106 mmol/L (98-107); Globulin 3.3 g/dL (2.4-3.5); Glucose 75 mg/dL (83-110); Magnesium 2.1 mg/dL (1.6-2.6); Potassium 4.3 mmol/L (3.5-5.1); Protein, Total 5.3 g/dL (5.8-8.1); Sodium 136 mmol/L (136-145)
[2021-09-09] MEDS: Ferrous Gluconate 324 MG TAB PO SCH ×2 (07:31→20:41)
[2021-09-09] MEDS: Famotidine/PF 20 mg/2ml Vial SLOW IVP SCH (07:31)
[2021-09-09] MEDS: Multivitamin W/ Minerals 1 TAB PO SCH (07:31)
[2021-09-09] MEDS: Gabapentin 300 MG CAP PO SCH ×3 (07:31→20:40)
[2021-09-09] MEDS: Artificial Tear Sol 15 ML BOT EA EYE SCH (07:31)
[2021-09-09 10:57] VITALS: BP 122/59
[2021-09-09] MEDS: traMADol HCl 50 MG TAB PO PRN ×2 (17:10→23:01)
[2021-09-10] MEDS: Meropenem 1 GM in Sodium Chloride 0.9% 100 ML IVPB SCH (04:48)
[2021-09-10 06:03] LABS: #Eosinphils 0.4 thou/uL (0.0-0.7); #Lymphocytes 1.3 thou/uL (1.20-3.40); #Monocytes 0.8 thou/uL (0.11-0.59); %Basophils 0.4 % (0.0-1.0); %Eosinophils 7.4 % (0.0-10.0); %Lymphocytes 23.4 % (21.0-51.0); %Neutrophils 54.8 % (42.0-75.0); Mean Corpuscular HGB CONC 31.6 g/dL (32.0-36.0); Mean Corpuscular Hemoglobin 29.4 pg (27.0-31.0); Mean Platelet Volume 8.5 fL (7.4-10.4); Platelet Count 267 thou/uL (130-400); RBC Distribution Width 12.5 % (11.5-14.5); Red Blood Cell (RBC) Count 3.06 mill/uL (4.20-5.40); White Blood Cell (WBC) Count 5.5 thou/uL (4.8-10.8)
[2021-09-10] MEDS: Multivitamin W/ Minerals 1 TAB PO SCH (07:26)
[2021-09-10] MEDS: Ferrous Gluconate 324 MG TAB PO SCH (07:26)
[2021-09-10] MEDS: Artificial Tear Sol 15 ML BOT EA EYE SCH (07:26)
[2021-09-10] MEDS: Gabapentin 300 MG CAP PO SCH (07:26)
[2021-09-10] MEDS: Famotidine/PF 20 mg/2ml Vial SLOW IVP SCH (07:27)
[2021-09-10 09:47] LABS: Phosphorus 2.8 mg/dL (2.3-4.7)
[2021-09-10 09:49] LABS: ALT (SGPT) 9 U/L (8-55); AST (SGOT) 14 U/L (5-34); Albumin 2.1 g/dL (3.4-4.8); Alkaline Phosphatase 55 U/L (40-110); Anion Gap 10 mmol/L (10-20); BUN (Urea Nitrogen) 9 mg/dL (9.8-20.1); Bilirubin, Total 0.4 mg/dL (0.2-1.2); Calc. Creatinine Clearance 61 mL/min (70-130); Carbon Dioxide 23 mmol/L (23-31); Chloride 106 mmol/L (98-107); Globulin 3.3 g/dL (2.4-3.5); Glucose 63 mg/dL (83-110); Magnesium 1.9 mg/dL (1.6-2.6); Potassium 4.5 mmol/L (3.5-5.1); Protein, Total 5.4 g/dL (5.8-8.1); Sodium 134 mmol/L (136-145)
[2021-09-10] MEDS ORDERED: Magnesium 2 GM/50 ML(in water) 2 GM in Premix Bag 1 BAG IVPB SCH (11:00)
[2021-09-10 11:14] VITALS: TEMP 96.7
== END 2021-09-10 12:54 | DRG 871 ==
LOC: ERS 19:16 → 2NO 09-02 00:19 → OBSVTOIN 09-03 09:19 → CCU 09-03 15:46 → IMCU/EMU 09-06 11:37
PROVIDERS: ADMIT Internal Medicine; ATTEND Internal Medicine
PROC: 3E03329 Introduction of Other Anti-infective into Peripheral Vein, Percutaneous Approach (ICD-10-PCS; principal; 2021-09-03)
PROC: 02HV33Z Insertion of Infusion Device into Superior Vena Cava, Percutaneous Approach (ICD-10-PCS; 2021-09-03)
PROC: B548ZZA Ultrasonography of Superior Vena Cava, Guidance (ICD-10-PCS; 2021-09-03)
PROC: 3E043XZ Introduction of Vasopressor into Central Vein, Percutaneous Approach (ICD-10-PCS; 2021-09-03)
PROC: 04HY32Z Insertion of Monitoring Device into Lower Artery, Percutaneous Approach (ICD-10-PCS; 2021-09-03)
PROC: 30233N1 Transfusion of Nonautologous Red Blood Cells into Peripheral Vein, Percutaneous Approach (ICD-10-PCS; 2021-09-08)
DX: A41.9 Sepsis, unspecified organism (principal); R65.21 Severe sepsis with septic shock; J18.9 Pneumonia, unspecified organism; N39.0 Urinary tract infection, site not specified; K56.7 Ileus, unspecified; I47.1 Supraventricular tachycardia; K56.609 Unspecified intestinal obstruction, unspecified as to partial versus complete obstruction; E27.49 Other adrenocortical insufficiency; Z20.822 Contact with and (suspected) exposure to COVID-19; G62.9 Polyneuropathy, unspecified; M19.90 Unspecified osteoarthritis, unspecified site; C50.911 Malignant neoplasm of unspecified site of right female breast; Z96.643 Presence of artificial hip joint, bilateral; E87.6 Hypokalemia; F17.210 Nicotine dependence, cigarettes, uncomplicated; D63.8 Anemia in other chronic diseases classified elsewhere; Y95 Nosocomial condition; E83.39 Other disorders of phosphorus metabolism; Z90.710 Acquired absence of both cervix and uterus; Z79.899 Other long term (current) drug therapy
CPT/HCPCS: 36415; 36416; 36430; 71045; 74176; 74177; 80048; 80053; 80202; 81003; 81015; 82533; 82805; 83605; 83690; 83735; 84100; 84484; 85025; 86850; 86900; 86901; 87040; 87086; 93005; 93010; 96372; 96374; 96375; J0696; J1650; J1885; J2185; J2270; J2405; J3370; J3475; J3480; J3490; J7030; J7050; J7120; J7999; P9016; S0028

== ENCOUNTER 2022-03-11 09:46 | Emergency (ER) | payer MEDICARE, MEDICAID ==
[2022-03-11] MEDS ORDERED: Ondansetron PF 4 MG/2 ML Vial ONE (10:08)
[2022-03-11 10:24] LABS: #Eosinphils 0.6 thou/uL (0.0-0.7); #Lymphocytes 1.6 thou/uL (1.20-3.40); #Monocytes 0.5 thou/uL (0.11-0.59); #Neutrophils 5.2 thou/uL (1.40-6.50); %Basophils 0.2 % (0.0-1.0); %Eosinophils 7.4 % (0.0-10.0); %Lymphocytes 20.4 % (21.0-51.0); %Monocytes 6.4 % (0.0-10.0); %Neutrophils 65.6 % (42.0-75.0); Hemoglobin 11.7 g/dL (12.0-16.0); Mean Corpuscular HGB CONC 32.2 g/dL (32.0-36.0); Mean Corpuscular Hemoglobin 28.7 pg (27.0-31.0); Mean Corpuscular Volume 89.1 fl (78.0-98.0); Mean Platelet Volume 8.3 fL (7.4-10.4); Platelet Count 310 10x3/uL (130-400); RBC Distribution Width 12.4 % (11.5-14.5); Red Blood Cell (RBC) Count 4.06 mill/uL (4.20-5.40); White Blood Cell (WBC) Count 7.9 10x3/uL (4.8-10.8)
[2022-03-11] MEDS ORDERED: Iopamidol-370 76% 500 ML 1 ML ONE (10:36)
[2022-03-11 10:48] LABS: ALT (SGPT) 10 U/L (8-55); AST (SGOT) 20 U/L (5-34); Albumin 3.8 g/dL (3.4-4.8); Alkaline Phosphatase 84 U/L (40-110); Anion Gap 14 mmol/L (10-20); BUN (Urea Nitrogen) 56 mg/dL (9.8-20.1); Bilirubin, Total 0.9 mg/dL (0.2-1.2); Calc. Creatinine Clearance 0 mL/min (70-130); Calcium 10.3 mg/dL (7.8-10.44); Carbon Dioxide 26 mmol/L (23-31); Chloride 100 mmol/L (98-107); Estimated GFR 52; Globulin 4.2 g/dL (2.4-3.5); Glucose 112 mg/dL (83-110); Lipase 21 U/L (8-78); Magnesium 2.6 mg/dL (1.6-2.6); Potassium 5.2 mmol/L (3.5-5.1); Sodium 135 mmol/L (136-145)
== END 2022-03-11 13:40 | disposition home or self-care (01) ==
LOC: ERS 09:46
DX: R59.0 Localized enlarged lymph nodes (principal); R63.0 Anorexia; R91.8 Other nonspecific abnormal finding of lung field; F17.220 Nicotine dependence, chewing tobacco, uncomplicated
CPT/HCPCS: 74177; 80053; 83690; 83735; 85025; 93005; 96374; J2405; Q9967

== ENCOUNTER 2022-04-13 08:22 | Outpatient (CLI) | payer MEDICARE, MEDICAID ==
[2022-04-13] MEDS ORDERED: Iopamidol 370 76% 100 ML VIAL ONE (12:48)
== END 2022-04-13 08:23 | disposition home or self-care (01) ==
LOC: CT 08:22
PROVIDERS: ATTEND Internal Medicine Critical Care Medicine
DX: R91.1 Solitary pulmonary nodule (principal); R91.8 Other nonspecific abnormal finding of lung field
CPT/HCPCS: 71260; 82565; Q9967

== ENCOUNTER 2022-05-30 10:02 | Outpatient (CLI) | payer MEDICARE, MEDICAID | END 2022-05-30 10:03 | disposition home or self-care (01) | LOC: BICMAMMO 10:02 | PROVIDERS: ATTEND Family Medicine | DX: Z12.31 Encounter for screening mammogram for malignant neoplasm of breast (principal); Z85.3 Personal history of malignant neoplasm of breast; Z90.11 Acquired absence of right breast and nipple | CPT/HCPCS: 77063; 77067 ==

== ENCOUNTER 2023-05-18 10:12 | Outpatient (CLI) | payer MEDICARE, MEDICAID | END 2023-05-18 10:13 | disposition home or self-care (01) | LOC: BICRAD 10:12 | PROVIDERS: ATTEND Family Medicine | DX: Z11.1 Encounter for screening for respiratory tuberculosis (principal) | CPT/HCPCS: 71046 ==

== ENCOUNTER 2023-06-16 08:51 | Outpatient (CLI) | payer MEDICARE, MEDICAID | END 2023-06-16 08:52 | disposition home or self-care (01) | LOC: BICMAMMO 08:51 | PROVIDERS: ATTEND Family Medicine | DX: Z12.31 Encounter for screening mammogram for malignant neoplasm of breast (principal); Z90.11 Acquired absence of right breast and nipple | CPT/HCPCS: 77063; 77067 ==

== ENCOUNTER 2023-10-27 12:55 | Outpatient (CLI) | payer MEDICARE, MEDICAID | END 2023-10-27 12:56 | disposition home or self-care (01) | LOC: BICRAD 12:55 | PROVIDERS: ATTEND Family Medicine | DX: M17.0 Bilateral primary osteoarthritis of knee (principal); M25.462 Effusion, left knee; M85.862 Other specified disorders of bone density and structure, left lower leg ==

== ENCOUNTER 2023-12-26 07:56 | Outpatient (CLI) | payer OTHER, MEDICAID ==
[2023-12-26] MEDS ORDERED: Iopamidol 370 76% 100 ML VIAL ONE (09:32)
== END 2023-12-26 07:57 | disposition home or self-care (01) ==
LOC: BICCT 07:56
PROVIDERS: ATTEND Family Medicine
DX: R10.11 Right upper quadrant pain (principal); R91.8 Other nonspecific abnormal finding of lung field; R59.0 Localized enlarged lymph nodes
CPT/HCPCS: 74177; 82565; Q9967

== ENCOUNTER 2024-01-31 08:25 | Outpatient (CLI) | payer OTHER, MEDICAID | END 2024-01-31 08:26 | disposition home or self-care (01) | LOC: RAD 08:25 | PROVIDERS: ATTEND Internal Medicine Critical Care Medicine | DX: R06.00 Dyspnea, unspecified (principal) | CPT/HCPCS: 71046 ==

== ENCOUNTER 2024-04-04 09:35 | Outpatient (CLI) | payer OTHER, MEDICAID | END 2024-04-04 09:36 | disposition home or self-care (01) | LOC: BICRAD 09:35 | PROVIDERS: ATTEND Family Medicine | DX: M79.672 Pain in left foot (principal); M19.072 Primary osteoarthritis, left ankle and foot ==

== ENCOUNTER 2024-12-05 10:21 | Outpatient (CLI) | payer OTHER | END 2024-12-05 10:22 | disposition home or self-care (01) | LOC: BICULT 10:21 | PROVIDERS: ATTEND Family Medicine | DX: R22.31 Localized swelling, mass and lump, right upper limb (principal) | CPT/HCPCS: 76999 ==